=== PATIENT | female | born 1935 | race Two or more races ===

== ENCOUNTER 2018-01-26 11:51 | Emergency (ER) | payer OTHER ==
[~2018-01-26] VITALS: Ht 157.5 cm; Wt 77.1 kg
[2018-01-26 11:58] VITALS: BP 166/61
[2018-01-26 12:51] LABS: APPEARANCE,URINE CLOUDY; BILIRUBIN, URINE NEGATIVE (NEGATIVE); GLUCOSE, URINE (UA) NEGATIVE (NEGATIVE); KETONES,URINE NEGATIVE (NEGATIVE); LEUKOCYTE ESTERASE ,URINE 1+ (NEGATIVE); NITRITE,URINE NEGATIVE (NEGATIVE); PH,URINE 6 (4.5-8.0); PROTEIN,URINE 2+ (NEGATIVE); UROBILINOGEN,URINE NORMAL MG/DL (0.0-1.0)
[2018-01-26 12:52] LABS: BASOPHILS % (AUTO) 1.8 % (0.0-2.0); HEMOGLOBIN 11.1 G/DL (12.0-16.0); LYMPHOCYTES % (AUTO) 20.3 % (20.0-45.0); MEAN CORPUSCULAR VOLUME 92 FL (80-99); MONOCYTES % (AUTO) 9.3 % (1.0-10.0); NEUTROPHILS % (AUTO) 61.6 % (45.0-75.0); PLATELET COUNT 224 K/UL (150-450); RED BLOOD COUNT 3.69 M/UL (4.20-5.40); WHITE BLOOD COUNT 5.6 K/UL (4.8-10.8)
[2018-01-26 12:59] LABS: COLOR,URINE YELLOW
[2018-01-26 13:05] LABS: ANION GAP 7 mmol/L (5-15); BLOOD UREA NITROGEN 25 mg/dL (7-18); CALCIUM 9.5 MG/DL (8.5-10.1); CARBON DIOXIDE 29 MMOL/L (21-32); CHLORIDE 106 MMOL/L (98-107); CREATININE 0.9 MG/DL (0.55-1.30); POTASSIUM 4.2 MMOL/L (3.5-5.1); SODIUM 142 MMOL/L (136-145)
[2018-01-26 13:18] LABS: ALANINE AMINOTRANSFERASE 25 U/L (12-78); ALBUMIN 3.8 G/DL (3.4-5.0); ALBUMIN/GLOBULIN RATIO 1.1 (1.0-2.7); ALKALINE PHOSPHATASE 53 U/L (46-116); ASPARTATE AMINO TRANSFERASE 27 U/L (15-37); BILIRUBIN,TOTAL 0.6 MG/DL (0.2-1.0); CKMB 1.7 NG/ML (0.0-3.6); CREATINE KINASE 134 U/L (26-308)
[2018-01-26 13:39] VITALS: BP 119/75
--- NOTE | 2018-01-26 15:18 | Emergency Room Report ---
History of Present Illness General Chief Complaint: Chest Pain Source: Patient Present Illness HPI This patient states that she has had pain in her left shoulder and left upper back for a very long time. She denies recent illness. She denies cough or congestion. She denies fever or chills. She denies nausea or vomiting. She denies abdominal pain. She has no other complaints. Allergies: Coded Allergies: No Known Allergies (Unverified , 01/26/18) Patient History Past Medical History: see triage record Social History: Denies: smoking, alcohol use, drug use Reviewed Nursing Documentation: PMH: Agreed; PSxH: Agreed Nursing Documentation-PMH Past Medical History: No History, Except For Review of Systems All Other Systems: negative except mentioned in HPI Physical Exam Vital Signs Date Time Temp Pulse Resp B/P (MAP) Pulse Ox O2 Delivery O2 Flow Rate FiO2 01/26/18 11:58 98.3 55 18 166/61 98 Room Air 98.2 Sp02 EP Interpretation: reviewed, normal General Appearance: no apparent distress, alert, GCS 15, non-toxic Head: normocephalic, atraumatic Eyes: bilateral eye normal inspection, bilateral eye PERRL ENT: hearing grossly normal, normal pharynx, no angioedema, normal voice Neck: full range of motion, supple/symm/no masses, tender - TTP along the L. trapezius m. and L. shoulder. Reproduces the pain. Respiratory: chest non-tender, lungs clear, normal breath sounds, no respiratory distress, no retraction, no accessory muscle use, speaking full sentences Cardiovascular #1: regular rate, rhythm, no edema Gastrointestinal: normal bowel sounds, non tender, soft, non-distended, no guarding, no rebound Rectal: deferred Musculoskeletal: back normal, normal range of motion, non-tender Neurologic: alert, oriented x3, responsive, motor strength/tone normal, sensory intact, speech normal Psychiatric: judgement/insight normal, memory normal, mood/affect normal, no suicidal/homicidal ideation Skin: normal color, no rash, warm/dry, well hydrated Medical Decision Making Diagnostic Impression: Primary Impression: Shoulder pain Additional Impressions: Trapezius muscle spasm Cervical radiculopathy Hematuria ER Course This patient has a clinical presentation consistent with muscle pain/spasm. There are no red flags on physical exam or history that would make me concerned for underlying fracture. The patient has pain with range of motion and has tenderness to palpation along the muscle. There is no evidence of compartment syndrome. There is no neurologic deficit. Given the patient's age, I did obtain a cardiac workup as a precaution. I considered PE, PTX, acute coronary syndrome, aortic dissection, pneumonia which is unlikely given hx, CE, CXR. Low risk PERC and Wells. Negative work-up to include Cardiac enzymes, CXR, EKG. Given history and PE I do not feel that this patient needs further evaluation at this time. The patient was instructed to follow-up closely with their PCP and close return precautions were given. The patient was instructed on supportive home measures. No emergency medical condition was identified. The patient was given return precautions and followup instructions. Laboratory Tests Test 01/26/18 12:19 White Blood Count 5.6 K/UL (4.8-10.8) Red Blood Count 3.69 M/UL (4.20-5.40) L Hemoglobin 11.1 G/DL (12.0-16.0) L Hematocrit 34.0 % (37.0-47.0) L Mean Corpuscular Volume 92 FL (80-99) Mean Corpuscular Hemoglobin 30.0 PG (27.0-31.0) Mean Corpuscular Hemoglobin Concent 32.6 G/DL (32.0-36.0) Red Cell Distribution Width 12.0 % (11.6-14.8) Platelet Count 224 K/UL (150-450) Mean Platelet Volume 7.7 FL (6.5-10.1) Neutrophils (%) (Auto) 61.6 % (45.0-75.0) Lymphocytes (%) (Auto) 20.3 % (20.0-45.0) Monocytes (%) (Auto) 9.3 % (1.0-10.0) Eosinophils (%) (Auto) 7.0 % (0.0-3.0) H Basophils (%) (Auto) 1.8 % (0.0-2.0) Urine Color Yellow Urine Appearance Cloudy Urine pH 6 (4.5-8.0) Urine Specific [place] 1.015 (1.005-1.035) Urine Protein 2+ (NEGATIVE) H Urine Glucose (UA) Negative (NEGATIVE) Urine Ketones Negative (NEGATIVE) Urine Blood 5+ (NEGATIVE) H Urine Nitrite Negative (NEGATIVE) Urine Bilirubin Negative (NEGATIVE) Urine Urobilinogen Normal MG/DL (0.0-1.0) Urine Leukocyte Esterase 1+ (NEGATIVE) H Urine RBC Tntc /HPF (0 - 2) H Urine WBC 2-4 /HPF (0 - 2) Urine Squamous Epithelial Cells Occasional /LPF Urine Bacteria Few /HPF (NONE) Sodium Level 142 MMOL/L (136-145) Potassium Level 4.2 MMOL/L (3.5-5.1) Chloride Level 106 MMOL/L (98-107) Carbon Dioxide Level 29 MMOL/L (21-32) Anion Gap 7 mmol/L (5-15) Blood Urea Nitrogen 25 mg/dL (7-18) H Creatinine 0.9 MG/DL (0.55-1.30) Estimate Glomerular Filtration Rate mL/min (>60) Glucose Level 105 MG/DL (74-106) Calcium Level 9.5 MG/DL (8.5-10.1) Total Bilirubin 0.6 MG/DL (0.2-1.0) Aspartate Amino Transferase (AST) 27 U/L (15-37) Alanine Aminotransferase (ALT) 25 U/L (12-78) Alkaline Phosphatase 53 U/L (46-116) Total Creatine Kinase 134 U/L (26-308) Creatine Kinase MB 1.7 NG/ML (0.0-3.6) Creatine Kinase MB Relative Index 1.2 Troponin I 0.017 ng/mL (0.000-0.056) Total Protein 7.4 G/DL (6.4-8.2) Albumin 3.8 G/DL (3.4-5.0) Globulin 3.6 g/dL Albumin/Globulin Ratio 1.1 (1.0-2.7) EKG Diagnostic Results Rate: bradycardiac - S.bren, LAD, IRBB Rhythm: other - S.bren ST Segments: no acute changes Rhythm Strip Diag. Results EP Interpretation: yes Rate: 50's Rhythm: no PVC's, no ectopy, other - S.bren Chest X-Ray Diagnostic Results Chest X-Ray Diagnostic Results : Chest X-Ray Ordered: Yes # of Views/Limited/Complete: 1 View Indication: Other EP Interpretation: Yes Interpretation: no consolidation, no effusion, no pneumothorax, no acute cardiopulmonary disease Impression: No acute disease Electronically Signed by: Marco Last Vital Signs Date Time Temp Pulse Resp B/P (MAP) Pulse Ox O2 Delivery O2 Flow Rate FiO2 01/26/18 13:39 97.2 54 16 119/75 98 Room Air 97.2 Status: improved Disposition: HOME, SELF-CARE Condition: Improved Scripts Unable to Obtain Active Prescriptions or Reported Meds Referrals: [facility],REFERRING (PCP) Maricruz Franks DO Jan 26, 2018 15:18
[2018-01-26] MEDS ORDERED: ACETAMINOPHEN500 M3 ORAL (15:20)
[2018-01-26 15:36] VITALS: BP 143/75
--- NOTE | 2018-01-26 16:33 | Diagnostic Imaging Report ---
Indication: Chest pain Technique: One view of the chest Comparison: none Findings: Lungs and pleural spaces are clear. The heart is enlarged. The aorta is tortuous and calcified Impression: Cardiomegaly No acute process
--- NOTE | 2018-01-28 19:02 | Cardiology Report ---
APPROVED REPORT EKG Measurement Heart [id number] Sinus bradycardia Left axis deviation Incomplete right bundle branch block Abnormal ECG
== END 2018-01-26 15:39 | disposition home or self-care (01) ==
LOC: EMR 13:15
DX: M54.12 Radiculopathy, cervical region (principal); M25.512 Pain in left shoulder; M62.838 Other muscle spasm; R31.9 Hematuria, unspecified
CPT/HCPCS: 36415; 71045; 80053; 81003; 82550; 82553; 84484; 85025; 93005; 99284

== ENCOUNTER 2019-01-21 11:44 | Inpatient (IN) | payer OTHER ==
[~2019-01-21] VITALS: Ht 162.6 cm; Wt 80.3 kg
[~2019-01-21 11:44] MED LIST: ACETAMINOPHEN500 M3 ORAL
--- NOTE | 2019-01-21 12:00 | NUR ---
ED Nurse Note: Patient walked into ED brought in by her crook operator from correction/assisted living [facility] due to s/p fall today that happened 1 hour prior to arrival, patient reports she was reaching for her medication and fell because the chair sled off, patient reports she felt "weak" and fell. another crook operator found her and her eyes were open, but patient was not responding properly. caretake reports that she does not appear normal to her. patient is awake alert, appears to be confused, ambulatory, breathing unlabored and even.
--- NOTE | 2019-01-21 12:20 | NUR ---
ED Nurse Note: patient went to CT
[2019-01-21 12:21] VITALS: BP 128/39
[2019-01-21 12:30] LABS: BASOPHILS % (AUTO) 1.4 % (0.0-2.0); EOSINOPHILS % (AUTO) 4.4 % (0.0-3.0); HEMOGLOBIN 12.5 G/DL (12.0-16.0); LYMPHOCYTES % (AUTO) 25.5 % (20.0-45.0); MEAN CORPUSCULAR VOLUME 91 FL (80-99); MONOCYTES % (AUTO) 10.5 % (1.0-10.0); NEUTROPHILS % (AUTO) 58.2 % (45.0-75.0); PLATELET COUNT 232 K/UL (150-450); RED BLOOD COUNT 4.29 M/UL (4.20-5.40); RED CELL DISTRIBUTION WIDTH 13.8 % (11.6-14.8); WHITE BLOOD COUNT 4.8 K/UL (4.8-10.8)
--- NOTE | 2019-01-21 12:42 | Emergency Room Report ---
History of Present Illness General Chief Complaint: Multiple Trauma/Fall Source: Patient Present Illness HPI 83-year-old female history of dementia presents with possible mechanical fall, patient was reaching for medications, fell backward when the chair slid out from under her, she had positive LOC patient denies any chest pain or shortness of breath patient presents for evaluation. Symptoms were mild she endorses a mild headache in the back of her head no aggravating or alleviating factors. Allergies: Coded Allergies: No Known Allergies (Unverified , 01/26/18) Patient History Past Medical History: see triage record Last Menstrual Period: n/a Reviewed Nursing Documentation: PMH: Agreed; PSxH: Agreed Nursing Documentation-PMH Past Medical History: No History, Except For Hx Cardiac Problems: Yes - high cholesterol Hx Asthma: Yes Review of Systems All Other Systems: negative except mentioned in HPI Physical Exam Vital Signs Date Time Temp Pulse Resp B/P (MAP) Pulse Ox O2 Delivery O2 Flow Rate FiO2 01/21/19 11:52 98.4 70 18 123/46 (71) 95 Room Air Sp02 EP Interpretation: reviewed, normal General Appearance: well appearing, no apparent distress, alert Head: normocephalic, atraumatic Eyes: bilateral eye PERRL, bilateral eye EOMI ENT: uvula midline, moist mucus membranes Neck: supple, thyroid normal, no bony tend, supple/symm/no masses Respiratory: lungs clear, no respiratory distress, no retraction, no accessory muscle use Cardiovascular #1: normal peripheral pulses, regular rate, rhythm, no edema, no gallop, no murmur Gastrointestinal: non tender, soft, no guarding, no rebound Musculoskeletal: normal inspection Neurologic: alert, oriented x3 Psychiatric: mood/affect normal Skin: no rash, warm/dry Medical Decision Making Diagnostic Impression: Primary Impression: Fall Qualified Codes: W19.XXXA - Unspecified fall, initial encounter Additional Impressions: Cardiac syncope Closed head injury Qualified Codes: S09.90XA - Unspecified injury of head, initial encounter ER Course 83-year-old female history of dementia presents with syncopal episode unsure if mechanical versus syncope given patient is a poor historian She did have a positive LOC, CT brain negative, EKG shows LAFB, and RBBB, concern for possible full block that may be intermittent, will admit patient for observational care and possible pacemaker versus cardiology evaluation Patient admitted to Dr. Larry Bellamy 1:45pm Laboratory Tests Test 01/21/19 12:19 White Blood Count 4.8 K/UL (4.8-10.8) Red Blood Count 4.29 M/UL (4.20-5.40) Hemoglobin 12.5 G/DL (12.0-16.0) Hematocrit 39.0 % (37.0-47.0) Mean Corpuscular Volume 91 FL (80-99) Mean Corpuscular Hemoglobin 29.1 PG (27.0-31.0) Mean Corpuscular Hemoglobin Concent 32.0 G/DL (32.0-36.0) Red Cell Distribution Width 13.8 % (11.6-14.8) Platelet Count 232 K/UL (150-450) Mean Platelet Volume 7.0 FL (6.5-10.1) Neutrophils (%) (Auto) 58.2 % (45.0-75.0) Lymphocytes (%) (Auto) 25.5 % (20.0-45.0) Monocytes (%) (Auto) 10.5 % (1.0-10.0) H Eosinophils (%) (Auto) 4.4 % (0.0-3.0) H Basophils (%) (Auto) 1.4 % (0.0-2.0) Sodium Level 142 MMOL/L (136-145) Potassium Level 4.5 MMOL/L (3.5-5.1) Chloride Level 107 MMOL/L (98-107) Carbon Dioxide Level 28 MMOL/L (21-32) Anion Gap 7 mmol/L (5-15) Blood Urea Nitrogen 38 mg/dL (7-18) H Creatinine 1.1 MG/DL (0.55-1.30) Estimate Glomerular Filtration Rate mL/min (>60) Glucose Level 113 MG/DL (74-106) H Calcium Level 9.4 MG/DL (8.5-10.1) Total Bilirubin 0.5 MG/DL (0.2-1.0) Aspartate Amino Transferase (AST) 24 U/L (15-37) Alanine Aminotransferase (ALT) 23 U/L (12-78) Alkaline Phosphatase 54 U/L (46-116) Total Creatine Kinase 99 U/L (26-308) Creatine Kinase MB 1.5 NG/ML (0.0-3.6) Creatine Kinase MB Relative Index 1.5 Troponin I 0.000 ng/mL (0.000-0.056) Pro-B-Type Natriuretic Peptide 367 pg/mL (0-125) H Total Protein 7.3 G/DL (6.4-8.2) Albumin 3.6 G/DL (3.4-5.0) Globulin 3.7 g/dL Albumin/Globulin Ratio 1.0 (1.0-2.7) Lipase 279 U/L (73-393) EKG Diagnostic Results EKG Time: 12:05 EP Interpretation: Sinus bradycardia, RBBB, LAFB, rate 59, QTc 401, no acute ST elevations Rhythm Strip Diag. Results Rhythm Strip Time: 13:45 EP Interpretation: yes Rate: 56 Rhythm: no PVC's, no ectopy, other - sinus bradycardia Chest X-Ray Diagnostic Results Chest X-Ray Diagnostic Results : Chest X-Ray Ordered: Yes # of Views/Limited/Complete: 1 View Indication: Other - syncope EP Interpretation: Yes Interpretation: no consolidation, no effusion, no pneumothorax, no acute cardiopulmonary disease Impression: No acute disease Electronically Signed by: He Chan MD CT/MRI/US Diagnostic Results CT/MRI/US Diagnostic Results : Impression CT brain no acute processes Last Vital Signs Date Time Temp Pulse Resp B/P (MAP) Pulse Ox O2 Delivery O2 Flow Rate FiO2 01/21/19 12:22 70 18 Room Air 01/21/19 12:21 98.4 128/39 99 Disposition: ADMITTED INPATIENT Condition: Stable Referrals: NON PHYSICIAN (PCP) He Chan MD Jan 21, 2019 12:42
--- NOTE | 2019-01-21 12:44 | NUR ---
ED Nurse Note: patient came back from CT
[2019-01-21 12:45] LABS: ANION GAP 7 mmol/L (5-15); BLOOD UREA NITROGEN 38 mg/dL (7-18); CALCIUM 9.4 MG/DL (8.5-10.1); CARBON DIOXIDE 28 MMOL/L (21-32); CHLORIDE 107 MMOL/L (98-107); CREATININE 1.1 MG/DL (0.55-1.30); POTASSIUM 4.5 MMOL/L (3.5-5.1); SODIUM 142 MMOL/L (136-145)
[2019-01-21 12:59] LABS: ALANINE AMINOTRANSFERASE 23 U/L (12-78); ALBUMIN 3.6 G/DL (3.4-5.0); ALKALINE PHOSPHATASE 54 U/L (46-116); ASPARTATE AMINO TRANSFERASE 24 U/L (15-37); BILIRUBIN,TOTAL 0.5 MG/DL (0.2-1.0); CKMB 1.5 NG/ML (0.0-3.6); CREATINE KINASE 99 U/L (26-308)
--- NOTE | 2019-01-21 13:00 | Diagnostic Imaging Report ---
Indications: Head trauma, pain, status post fall Technique: Spiral acquisitions obtained through the brain. Angled axial and coronal 5 x 5 mm slices were reconstructed. Total dose length product 1337.38 mGycm. CTDI vol(s) 70.38 mGy. Dose reduction achieved using automated exposure control Comparison: None. Findings: There is age-related enlargement of the convexity extra-axial CSF spaces. Ventricles are normal in size. No acute intracranial hemorrhage or edema, mass effect, nor midline shift. Normal doss-white differentiation. Visualized orbits and sinuses are unremarkable. The mastoids are underpneumatized, otherwise unremarkable. The calvarium is intact. Impression: Negative for acute intracranial bleed or mass effect Age-related cerebral cortical volume loss The CT scanner at [facility] is accredited by the [employer] and the scans are performed using protocols designed to limit radiation exposure to as low as reasonably achievable to attain images of sufficient resolution adequate for diagnostic evaluation.
--- NOTE | 2019-01-21 13:09 | NUR ---
ED Nurse Note: Report given to DONNA Juarez at ext [phone]. Pt to be transfered to Tele per protocol. RN instructed to bring pt up when room is ready.
--- NOTE | 2019-01-21 13:33 | NUR ---
ED Nurse Note: UA SENT TO LAB
--- NOTE | 2019-01-21 13:40 | NUR ---
ED Nurse Note: patient is being transferred up to 2E on ACLS protocol with all of her belongings.
--- NOTE | 2019-01-21 13:50 | NUR ---
NURSE NOTES: Received report from Sirisha RN from ED. The patient transferred via [place] with ED RN and packaging technician. No c/o pain at this time. No acute distress noted. surveillance system monitor applied. Bed in its lowest position and locked. Side rails x2 up and brake engaged. IV in RAC 20G SL patent and asymptomatic. Belonging list reviewed and signed by the patient. Her clothes taken by her client care coordinator. Dr. Willams paged for getting admission diagnosis. Will continue to plan of care.
[2019-01-21 14:00] VITALS: BP 147/85
[2019-01-21 14:00] LABS: APPEARANCE,URINE CLEAR; BILIRUBIN, URINE NEGATIVE (NEGATIVE); COLOR,URINE PALE YELLOW; GLUCOSE, URINE (UA) NEGATIVE (NEGATIVE); KETONES,URINE NEGATIVE (NEGATIVE); LEUKOCYTE ESTERASE ,URINE 2+ (NEGATIVE); NITRITE,URINE NEGATIVE (NEGATIVE); PH,URINE 7 (4.5-8.0); PROTEIN,URINE NEGATIVE (NEGATIVE); UROBILINOGEN,URINE NORMAL MG/DL (0.0-1.0)
[2019-01-21] MEDS ORDERED: Miralax 17gm pkt ORAL PRN (14:00)
[2019-01-21] MEDS ORDERED: Zolpidem 5mg tab ORAL PRN (14:00)
[2019-01-21] MEDS ORDERED: LORazepam Inj 2mg/ml 1ml IV PRN (14:00)
--- NOTE | 2019-01-21 14:18 | Diagnostic Imaging Report ---
Indication: Shortness of breath Technique: One view of the chest Comparison: 01/26/2018 Findings: The heart is enlarged. There is mild bilateral diffuse interstitial congestion. No focal airspace consolidation. No effusions. Impression: Cardiomegaly. Mild interstitial congestion
[2019-01-21 16:00] VITALS: BP 141/79
[2019-01-21] MEDS ORDERED: MECLIZINE HCL12.5 MG ORAL (16:32)
[2019-01-21] MEDS ORDERED: IBUPROFEN200 MG ORAL (16:32)
[2019-01-21] MEDS ORDERED: MONTELUKAST SOD10 MG ORAL (16:32)
--- NOTE | 2019-01-21 19:18 | NUR ---
HAND-OFF: Report given to Ray THOMPSON. Pt remains stable.
--- NOTE | 2019-01-21 19:20 | NUR ---
NURSE NOTES: Pt received from Min, RN alert and oriented x4 with no acute s/s of distress noted with caretakers at bedside. IV site asymptomatic and patent on R ac 20g, saline lock. Bed alarm on. Bed in lowest position, call light and belongings within reach. groundwater monitoring technician on - Sinus Rhythm 75.
[2019-01-21 20:00] VITALS: BP 146/55
[2019-01-21] MEDS: Montelukast 10mg tablet ORAL SCH (21:18)
[2019-01-22] VITALS: BP 149/51
[2019-01-22] MEDS: Morphine Sulfate 2mg/ml Inj(IV/IM USE ONLY) IVP PRN ×3 (02:08→21:19)
[2019-01-22 04:00] VITALS: BP 141/58
--- NOTE | 2019-01-22 07:23 | NUR ---
HAND-OFF: Report given to DONNA Poole. Plan of care endorsed. No acute s/s of acute distress noted.
--- NOTE | 2019-01-22 07:31 | NUR ---
NURSE NOTES: Received report from DONNA Bell. Patient in bed resting, no active s/s cardiac, respiratory distress noticed at this time. Patient AOx4, forgetful, SB with HR 49, on room air. IV on right AC 20G, asymptomatic, patent, intact. Bed in lowest position, side rails upx3, call light within reach, bed alarm on. Will continue to monitor.
[2019-01-22 08:00] VITALS: BP 138/53
[2019-01-22 08:00] LABS: BASOPHILS % (AUTO) 1.3 % (0.0-2.0); EOSINOPHILS % (AUTO) 5.5 % (0.0-3.0); HEMATOCRIT 36.6 % (37.0-47.0); HEMOGLOBIN 11.8 G/DL (12.0-16.0); LYMPHOCYTES % (AUTO) 33.9 % (20.0-45.0); MEAN CORPUSCULAR VOLUME 91 FL (80-99); MONOCYTES % (AUTO) 10.4 % (1.0-10.0); PLATELET COUNT 192 K/UL (150-450); RED BLOOD COUNT 4.01 M/UL (4.20-5.40); RED CELL DISTRIBUTION WIDTH 13.6 % (11.6-14.8); WHITE BLOOD COUNT 4.5 K/UL (4.8-10.8)
[2019-01-22 09:41] LABS: ALANINE AMINOTRANSFERASE 21 U/L (12-78); ALBUMIN 3.2 G/DL (3.4-5.0); ALBUMIN/GLOBULIN RATIO 0.9 (1.0-2.7); ALKALINE PHOSPHATASE 46 U/L (46-116); ANION GAP 10 mmol/L (5-15); ASPARTATE AMINO TRANSFERASE 22 U/L (15-37); BILIRUBIN,TOTAL 0.5 MG/DL (0.2-1.0); BLOOD UREA NITROGEN 26 mg/dL (7-18); CALCIUM 9.2 MG/DL (8.5-10.1); CARBON DIOXIDE 26 MMOL/L (21-32); CHLORIDE 109 MMOL/L (98-107); CHOLESTEROL 208 MG/DL (< 200); HDL CHOLESTEROL 46 MG/DL (40-60); POTASSIUM 4.5 MMOL/L (3.5-5.1); SODIUM 145 MMOL/L (136-145); TRIGLYCERIDES 103 MG/DL (30-150)
--- NOTE | 2019-01-22 09:52 | NUR ---
NURSE NOTES: Dr. Bellamy made aware of lowest HR last night 42, HR at this time is 67. No order given at this time. Will continue to monitor. Addendum: 01/22/19 at 0957 by ARCHANA ROSALES RN per Dr. Bellamy, Dr. Lewis on the case. Order noted, entered, carried out.
--- NOTE | 2019-01-22 10:23 | Consultation ---
History of Present Illness General Date patient seen: Jan 22, 2019 Time patient seen: 12:09 Chief Complaint: Multiple Trauma/Fall Present Illness HPI HISTORY: This is an 83-year-old female, who lives at home, presents to [place] ER with history of syncopal episode. No nausea, vomiting, or diarrhea. No chest pain. No shortness of breath. 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 Allergies: Coded Allergies: No Known Allergies (Unverified , 01/26/18) Medication History Scheduled Montelukast Sodium* (Montelukast Sodium*), 10 MG ORAL HS, (Reported) Scheduled PRN Ibuprofen (Ibuprofen*), 650 MG ORAL Q8HR PRN for For Pain, (Reported) Meclizine Hcl* (Meclizine*), 12.5 MG ORAL DAILY PRN for for dizziness, (Reported ) Discontinued Medications Acetaminophen* (Acetaminophen Extra Strength*), 500 MG ORAL Q8H PRN for Fever/ Headache/Mild Pain Discontinued Reason: Pt stopped taking med Patient History Healthcare decision maker Resuscitation status Full Code Advanced Directive on File No Review of Systems Constitutional: Reports: no symptoms Eye: Reports: no symptoms Respiratory: Reports: no symptoms Cardiovascular: Reports: syncope Gastrointestinal: Reports: no symptoms Genitourinary: Reports: no symptoms Musculoskeletal: Reports: no symptoms Skin: Reports: no symptoms Psychiatric: Reports: no symptoms Neurological: Reports: no symptoms Endocrine: Reports: no symptoms Hematologic/Lymphatic: Reports: no symptoms Physical Exam General Appearance: no apparent distress, alert Lines, tubes and drains: peripheral HEENT: normocephalic, atraumatic Neck: non-tender, normal alignment, supple Respiratory/Chest: chest wall non-tender, lungs clear Cardiovascular/Chest: normal peripheral pulses, normal rate, regular rhythm Abdomen: normal bowel sounds, non tender Extremities: normal range of motion, non-tender, normal inspection, no calf tenderness Skin Exam: normal pigmentation, warm/dry, cyanotic Neurologic: bindery manager II-XII grossly normal, no motor/sensory deficits Last 24 Hour Vital Signs Date Time Temp Pulse Resp B/P (MAP) Pulse Ox O2 Delivery O2 Flow Rate FiO2 01/22/19 09:00 Room Air 01/22/19 08:00 97.2 43 18 138/53 (81) 96 43 01/22/19 08:00 42 01/22/19 04:00 42 01/22/19 04:00 98.3 50 20 141/58 (85) 98 50 01/22/19 00:00 98.3 51 20 149/51 (83) 98 51 01/22/19 00:00 57 01/21/19 21:00 Room Air 01/21/19 20:00 51 01/21/19 20:00 97.9 58 20 146/55 (85) 99 58 01/21/19 16:00 97.9 81 18 141/79 (99) 96 81 01/21/19 16:00 74 01/21/19 14:15 Room Air 01/21/19 14:04 74 01/21/19 14:00 97.8 76 18 147/85 (105) 97 76 01/21/19 13:40 98.4 79 18 128/39 99 Room Air 01/21/19 12:22 70 18 Room Air 01/21/19 12:21 98.4 79 17 128/39 99 Room Air 01/21/19 11:52 98.4 70 18 123/46 (71) 95 Room Air Intake and Output 01/21/19 01/22/19 18:59 06:59 Intake Total 200 ml Balance 200 ml Intake Oral 200 ml # Voids 3 4 Laboratory Tests Test 01/21/19 12:19 01/21/19 13:26 01/22/19 05:45 White Blood Count 4.8 K/UL (4.8-10.8) 4.5 K/UL (4.8-10.8) L Red Blood Count 4.29 M/UL (4.20-5.40) 4.01 M/UL (4.20-5.40) L Hemoglobin 12.5 G/DL (12.0-16.0) 11.8 G/DL (12.0-16.0) L Hematocrit 39.0 % (37.0-47.0) 36.6 % (37.0-47.0) L Mean Corpuscular Volume 91 FL (80-99) 91 FL (80-99) Mean Corpuscular Hemoglobin 29.1 PG (27.0-31.0) 29.4 PG (27.0-31.0) Mean Corpuscular Hemoglobin Concent 32.0 G/DL (32.0-36.0) 32.2 G/DL (32.0-36.0) Red Cell Distribution Width 13.8 % (11.6-14.8) 13.6 % (11.6-14.8) Platelet Count 232 K/UL (150-450) 192 K/UL (150-450) Mean Platelet Volume 7.0 FL (6.5-10.1) 7.0 FL (6.5-10.1) Neutrophils (%) (Auto) 58.2 % (45.0-75.0) 49.0 % (45.0-75.0) Lymphocytes (%) (Auto) 25.5 % (20.0-45.0) 33.9 % (20.0-45.0) Monocytes (%) (Auto) 10.5 % (1.0-10.0) H 10.4 % (1.0-10.0) H Eosinophils (%) (Auto) 4.4 % (0.0-3.0) H 5.5 % (0.0-3.0) H Basophils (%) (Auto) 1.4 % (0.0-2.0) 1.3 % (0.0-2.0) Sodium Level 142 MMOL/L (136-145) 145 MMOL/L (136-145) Potassium Level 4.5 MMOL/L (3.5-5.1) 4.5 MMOL/L (3.5-5.1) Chloride Level 107 MMOL/L (98-107) 109 MMOL/L (98-107) H Carbon Dioxide Level 28 MMOL/L (21-32) 26 MMOL/L (21-32) Anion Gap 7 mmol/L (5-15) 10 mmol/L (5-15) Blood Urea Nitrogen 38 mg/dL (7-18) H 26 mg/dL (7-18) H Creatinine 1.1 MG/DL (0.55-1.30) 1.0 MG/DL (0.55-1.30) Estimat Glomerular Filtration Rate mL/min (>60) mL/min (>60) Glucose Level 113 MG/DL (74-106) H 87 MG/DL (74-106) Calcium Level 9.4 MG/DL (8.5-10.1) 9.2 MG/DL (8.5-10.1) Total Bilirubin 0.5 MG/DL (0.2-1.0) 0.5 MG/DL (0.2-1.0) Aspartate Amino Transf (AST/SGOT) 24 U/L (15-37) 22 U/L (15-37) Alanine Aminotransferase (ALT/SGPT) 23 U/L (12-78) 21 U/L (12-78) Alkaline Phosphatase 54 U/L (46-116) 46 U/L (46-116) Total Creatine Kinase 99 U/L (26-308) Creatine Kinase MB 1.5 NG/ML (0.0-3.6) Creatine Kinase MB Relative Index 1.5 Troponin I 0.000 ng/mL (0.000-0.056) Pro-B-Type Natriuretic Peptide 367 pg/mL (0-125) H Total Protein 7.3 G/DL (6.4-8.2) 6.6 G/DL (6.4-8.2) Albumin 3.6 G/DL (3.4-5.0) 3.2 G/DL (3.4-5.0) L Globulin 3.7 g/dL 3.4 g/dL Albumin/Globulin Ratio 1.0 (1.0-2.7) 0.9 (1.0-2.7) L Lipase 279 U/L (73-393) Urine Color Pale yellow Urine Appearance Clear Urine pH 7 (4.5-8.0) Urine Specific [place] 1.005 (1.005-1.035) Urine Protein Negative (NEGATIVE) Urine Glucose (UA) Negative (NEGATIVE) Urine Ketones Negative (NEGATIVE) Urine Blood Negative (NEGATIVE) Urine Nitrite Negative (NEGATIVE) Urine Bilirubin Negative (NEGATIVE) Urine Urobilinogen Normal MG/DL (0.0-1.0) Urine Leukocyte Esterase 2+ (NEGATIVE) H Urine RBC 0 /HPF (0 - 2) Urine WBC 2-4 /HPF (0 - 2) Urine Squamous Epithelial Cells Occasional /LPF Urine Bacteria None /HPF (NONE) Triglycerides Level 103 MG/DL (30-150) Cholesterol Level 208 MG/DL (< 200) H LDL Cholesterol 137 mg/dL (<100) H HDL Cholesterol 46 MG/DL (40-60) Cholesterol/HDL Ratio 4.5 (3.3-4.4) H Thyroid Stimulating Hormone (TSH) 1.892 uiU/mL (0.358-3.740) Microbiology Date/Time Source Procedure Growth Status 01/21/19 13:13 Rectum Received Height (Feet): 5 Height (Inches): 4.00 Weight (Pounds): 177 Medications Current Medications Medications (Trade) Dose Ordered Sig/Rosalina Route PRN Reason Start Time Stop Time Status Last Admin Dose Admin Acetaminophen (Tylenol) 650 mg Q4H PRN ORAL fever 01/21/19 14:00 02/20/19 13:59 01/22/19 09:46 Dextrose (Dextrose 50%) 25 ml Q30M PRN IV Hypoglycemia 01/21/19 14:00 02/20/19 13:59 Dextrose (Dextrose 50%) 50 ml Q30M PRN IV Hypoglycemia 01/21/19 14:00 02/20/19 13:59 Lorazepam (Ativan 2mg/ml 1ml) 0.5 mg Q4H PRN IV For Anxiety 01/21/19 14:00 01/28/19 13:59 Montelukast Sodium (Singulair) 10 mg QHS ORAL 01/21/19 21:00 02/20/19 20:59 01/21/19 21:18 Morphine Sulfate (Morphine Sulfate) 1 mg Q4H PRN IVP For Pain 01/21/19 14:00 01/28/19 13:59 01/22/19 02:08 Ondansetron HCl (Zofran) 4 mg Q6H PRN IVP Nausea & Vomiting 01/21/19 14:00 02/20/19 13:59 Polyethylene Glycol (Miralax) 17 gm HSPRN PRN ORAL Constipation 01/21/19 14:00 02/20/19 13:59 Zolpidem Tartrate (Ambien) 5 mg HSPRN PRN ORAL Insomnia 01/21/19 14:00 01/28/19 13:59 Assessment/Plan Status: stable, progressing Assessment/Plan: ASSESSMENT: 1. Syncope. 2. UTI. 3. 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 4. Anemia. 5. Shortness of breath. PLAN: Continue to monitor on telemetry d/c with ziopatch Check orthostatics Echocardiogram pending IV fluids No indication for pacemaker at this time. Fritz Lester MD Jan 22, 2019 10:23
--- NOTE | 2019-01-22 10:33 | NUR ---
NURSE NOTES: Dr. Lester at the nursing station made aware of HR last night 42. Per MD, when patient asleep HR 42 is okay. No order given at this time. Will continue to monitor.
--- NOTE | 2019-01-22 11:03 | NUR ---
CASE MANAGEMENT: INITIAL REVIEW 83 YO F PRESENTED TO OUR ED FROM HOME CC: S/P FALL PMHx: HLD. ASTHMA. SI:SYNCOPE. T 98.4 HR 70 RR 18 B/P 123/46 SATS 95% ON RA BUN 38 GLU 113 BNP 367 IS: NS BOLUS X1 PATIENT ADMITTED TO TELE 01/21/2019 @ 7235 DCP: PATIENT TO BE DISCHARGED TO HOME ONCE MEDICALLY CLEARED. PLAN OF CARE: 2D ECHO EF 60% VENOUS DUPLEX PT EVAL Addendum: 01/22/19 at 1812 by Shirley Frausto CM INTERBIJAN BUCK
[2019-01-22 12:00] VITALS: BP 127/59
--- NOTE | 2019-01-22 13:23 | Cardiology Report ---
APPROVED REPORT EKG Measurement Heart [id number] WI 180P49 [id number] Sinus bradycardia Right bundle branch block Left anterior fascicular block Bifascicular block Cannot rule out Inferior infarct (masked by fascicular block?), age undetermined Abnormal ECG
--- NOTE | 2019-01-22 15:45 | NUR ---
PT Note PT rosana completed, treatment initiated. Patient has muscle weakness and decreased balance, making her at a risk for falls. Patient needs PT to increase her muscle strength and postural stability to improve her safety in mobility and gait. Addendum: 01/22/19 at 1546 by GENIE TOSCANO PT Amended: Links added.
[2019-01-22 16:00] VITALS: BP 149/64
--- NOTE | 2019-01-22 19:35 | NUR ---
HAND-OFF: Report given to DONNA Rubio.
--- NOTE | 2019-01-22 19:43 | NUR ---
NURSE NOTES: Received report from DONNA Poole. Patient is awake lying semi-decker's; resting comfortably. No signs of acute distress noted; complains of pain. AOx3-4; able to make needs known. Primarily Malay speaking. Ambulates with some assistance. Checked IV site; patent and flushed. No erythema, bleeding, or infiltration noted. Bed at lowest position, brakes on, siderails up x3. Call light within reach. Will continue to monitor.
[2019-01-22 20:00] VITALS: BP 144/66
[2019-01-22] MEDS: Montelukast 10mg tablet ORAL SCH (21:15)
--- NOTE | 2019-01-22 21:30 | History and Physical Report ---
DATE OF ADMISSION: 01/21/2019 TIME SEEN: On 01/21/2019, at 3 p.m. CONSULTANTS: 1. 2. Melissa Willams M.D. CHIEF COMPLAINT: Syncope and weakness. BRIEF HISTORY: This is an 83-year-old female, who lives at home, presents to [place] [facility] with history of syncopal episode. No nausea, vomiting, or diarrhea. No chest pain. No shortness of breath. The patient came to [place], diagnosed as above, with left fascicular block and right bundle-branch block and admitted to telemetry for further care. Currently, calm, sitting, no complaint. REVIEW OF SYSTEMS: No chest pain. No shortness of breath. No nausea, vomiting, or diarrhea. PAST MEDICAL HISTORY: Includes syncope and fall. PAST SURGICAL HISTORY: Unknown. MEDICATIONS: Include Montelukast, Tylenol, morphine, polyethylene glycol, Zofran, and lorazepam. ALLERGIES: Denies. SOCIAL HISTORY: Positive smoke. Occasional alcohol. No intravenous drug abuse. FAMILY HISTORY: Noncontributory. PHYSICAL EXAMINATION: GENERAL: Calm in bed, oriented x3, in no acute distress. VITAL SIGNS: Temperature is 97 degrees, pulse 54, respirations 18, and blood pressure 127/59. CARDIOVASCULAR: No murmurs. LUNGS: Poor air exchange. ABDOMEN: Bowel sounds positive. Nontender. Nondistended. EXTREMITIES: No cyanosis, clubbing, or edema. NEUROLOGIC: The patient moves all extremities, slightly weak. LABORATORY AND DIAGNOSTIC DATA: Labs at this time show white count 4.5, H and H 11.8/36, otherwise CBC is normal. BMP shows chloride 109, BUN 26, albumin 3.2, and cholesterol 208. Urinalysis show 2+ leukocyte esterase. ASSESSMENT: 1. Syncope. 2. UTI. 3. 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 4. Anemia. 5. Shortness of breath. PLAN: 1. O2 and pulmonary treatment. 2. Cardiology followup. 3. Telemetry evaluation. 4. Antibiotics p.r.n. 5. PT and dietary evaluation. 6. CBC and BMP in the morning. Larry Bellamy D.O. DR: FÉLIX JOB#: [id number] CC:
[2019-01-23] VITALS: BP 156/80
--- NOTE | 2019-01-23 03:32 | NUR ---
NURSE NOTES: Patient is asleep lying semi-decker's; resting comfortably. No signs of acute distress or pain noted at this time.
[2019-01-23 04:00] VITALS: BP 165/81
--- NOTE | 2019-01-23 07:13 | NUR ---
HAND-OFF: Report given to DONNA Poole. Patient is asleep lying semi-decker's; resting comfortably. In stable condition.
--- NOTE | 2019-01-23 07:29 | NUR ---
NURSE NOTES: Received report from DONNA Rubio. Patient in bed resting, no active s/s cardiac, respiratory distress noticed at this time. Patient on room air, SR with HR 62, AOx4, forgetful. IV on right AC 20G, asymptomatic, patent, intact. Bed in lowest position, side rails upx2, call light within reach. Will continue to monitor.
[2019-01-23 07:46] LABS: BASOPHILS % (AUTO) 1.7 % (0.0-2.0); EOSINOPHILS % (AUTO) 5.8 % (0.0-3.0); HEMATOCRIT 38.5 % (37.0-47.0); HEMOGLOBIN 12.3 G/DL (12.0-16.0); LYMPHOCYTES % (AUTO) 29.2 % (20.0-45.0); MEAN CORPUSCULAR VOLUME 91 FL (80-99); MONOCYTES % (AUTO) 10.6 % (1.0-10.0); NEUTROPHILS % (AUTO) 52.6 % (45.0-75.0); PLATELET COUNT 192 K/UL (150-450); RED BLOOD COUNT 4.26 M/UL (4.20-5.40); RED CELL DISTRIBUTION WIDTH 13.7 % (11.6-14.8); WHITE BLOOD COUNT 4.7 K/UL (4.8-10.8)
[2019-01-23 07:52] LABS: ANION GAP 7 mmol/L (5-15); BLOOD UREA NITROGEN 23 mg/dL (7-18); CALCIUM 9.5 MG/DL (8.5-10.1); CARBON DIOXIDE 28 MMOL/L (21-32); CHLORIDE 108 MMOL/L (98-107); POTASSIUM 4.3 MMOL/L (3.5-5.1); SODIUM 143 MMOL/L (136-145)
[2019-01-23 08:00] VITALS: BP 166/63
--- NOTE | 2019-01-23 08:01 | NUR ---
NURSE NOTES: Dr. Lester made aware of elevation in BP 166/63 , HR 50-60s, no BP med ordered, patient does not take BP med at home. Per Dr. Lester Norvasc 5 mg PO once. Order noted, entered, carried out.
[2019-01-23] MEDS: cefTRIAXone 1 GM in D5W 55 ML IVPB SCH (09:04)
--- NOTE | 2019-01-23 09:56 | General Progress Note ---
Assessment/Plan Problem List: (1) Avulsion of toenail of left foot ICD Codes: S91.209A - Unspecified open wound of unspecified toe(s) with damage to nail, initial encounter SNOMED: 326150709 (2) Anemia ICD Codes: D64.9 - Anemia, unspecified SNOMED: 899973191 (3) Malnutrition ICD Codes: E46 - Unspecified protein-calorie malnutrition SNOMED: 64086872 (4) Fall ICD Codes: W19.XXXA - Unspecified fall, initial encounter SNOMED: 8250916, 142442578 Qualifiers: Qualified Codes: W19.XXXA - Unspecified fall, initial encounter (5) Cardiac syncope ICD Codes: R55 - Syncope and collapse SNOMED: 901955117, 06475493 Status: stable, progressing Assessment/Plan: pt diet cardiac f/u pod eval cbc bmp am Subjective Constitutional: Reports: weakness Allergies: Coded Allergies: No Known Allergies (Unverified , 01/26/18) All Systems: reviewed and negative except above Subjective calm in bed Objective Last 24 Hour Vital Signs Date Time Temp Pulse Resp B/P (MAP) Pulse Ox O2 Delivery O2 Flow Rate FiO2 01/23/19 09:04 65 166/63 01/23/19 08:00 97.3 65 18 166/63 (97) 96 01/23/19 04:00 62 01/23/19 04:00 96.6 65 20 165/81 (109) 96 01/23/19 00:00 97.9 63 18 156/80 (105) 98 01/23/19 00:00 53 01/22/19 21:00 Room Air 01/22/19 20:00 74 01/22/19 20:00 97.9 52 19 144/66 (92) 98 01/22/19 16:00 45 01/22/19 16:00 98.2 60 18 149/64 (92) 97 60 01/22/19 12:00 43 01/22/19 12:00 97.0 54 18 127/59 (81) 97 54 Intake and Output 01/22/19 01/23/19 19:00 07:00 Intake Total 640 ml 240 ml Balance 640 ml 240 ml Intake Oral 640 ml 240 ml # Voids 2 2 Laboratory Tests 01/23/19 05:40: White Blood Count 4.7L, Red Blood Count 4.26, Hemoglobin 12.3, Hematocrit 38.5, Mean Corpuscular Volume 91, Mean Corpuscular Hemoglobin 29.0, Mean Corpuscular Hemoglobin Concent 32.1, Red Cell Distribution Width 13.7, Platelet Count 192, Mean Platelet Volume 6.9, Neutrophils (%) (Auto) 52.6, Lymphocytes (%) (Auto) 29.2, Monocytes (%) (Auto) 10.6H, Eosinophils (%) (Auto) 5.8H, Basophils (%) ( Auto) 1.7, Sodium Level 143, Potassium Level 4.3, Chloride Level 108H, Carbon Dioxide Level 28, Anion Gap 7, Blood Urea Nitrogen 23H, Creatinine 1.0, Estimat Glomerular Filtration Rate , Glucose Level 87, Calcium Level 9.5 Height (Feet): 5 Height (Inches): 4.00 Weight (Pounds): 177 General Appearance: lethargic EENT: normal ENT inspection Neck: normal alignment Cardiovascular: normal peripheral pulses, normal rate, regular rhythm Respiratory/Chest: chest wall non-tender, lungs clear, normal breath sounds Abdomen: normal bowel sounds, non tender, soft Extremities: normal inspection Edema: no edema noted Arm (L), no edema noted Arm (R), no edema noted Leg (L), no edema noted Leg (R), no edema noted Pedal (L), no edema noted Pedal (R), no edema noted Generalized Neurologic: responsive, motor weakness Skin: normal pigmentation, warm/dry Objective left big toe nail avulsed Larry Bellamy DO Jan 23, 2019 09:56
[2019-01-23] MEDS: Morphine Sulfate 2mg/ml Inj(IV/IM USE ONLY) IVP PRN ×2 (11:22→20:57)
[2019-01-23 12:00] VITALS: BP 143/68
--- NOTE | 2019-01-23 12:12 | Cardiology Progress Note ---
Assessment/Plan Status: stable Assessment/Plan ASSESSMENT: 1. Syncope. 2. UTI. 3. 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 4. Anemia. 5. Shortness of breath. PLAN: Continue to monitor on telemetry d/c with ziopatch Check orthostatics Echocardiogram pending IV fluids No indication for pacemaker at this time. Subjective Cardiovascular: Reports: no symptoms Respiratory: Reports: no symptoms Gastrointestinal/Abdominal: Reports: no symptoms Genitourinary: Reports: no symptoms Subjective No acute events, no arrhythmias no falls no fevers no CP/SOB Objective Last 24 Hour Vital Signs Date Time Temp Pulse Resp B/P (MAP) Pulse Ox O2 Delivery O2 Flow Rate FiO2 01/23/19 09:04 65 166/63 01/23/19 09:00 Room Air 01/23/19 08:00 68 01/23/19 08:00 97.3 65 18 166/63 (97) 96 01/23/19 04:00 62 01/23/19 04:00 96.6 65 20 165/81 (109) 96 01/23/19 00:00 97.9 63 18 156/80 (105) 98 01/23/19 00:00 53 01/22/19 21:00 Room Air 01/22/19 20:00 74 01/22/19 20:00 97.9 52 19 144/66 (92) 98 01/22/19 16:00 45 01/22/19 16:00 98.2 60 18 149/64 (92) 97 60 General Appearance: no apparent distress, alert EENT: PERRL/EOMI, normal ENT inspection, TMs normal, pharynx normal Neck: non-tender, normal alignment, supple, normal inspection, no JVD Rhythm: NSR Cardiovascular: normal peripheral pulses, normal rate Respiratory/Chest: chest wall non-tender, lungs clear, normal breath sounds, no respiratory distress, no accessory muscle use Abdomen: normal bowel sounds, non tender, soft, no organomegaly, no mass Extremities: normal range of motion, non-tender, normal inspection, no calf tenderness, no swelling Intake and Output 01/22/19 01/23/19 18:59 06:59 Intake Total 640 ml 240 ml Balance 640 ml 240 ml Intake Oral 640 ml 240 ml # Voids 2 2 Laboratory Tests Test 01/23/19 05:40 White Blood Count 4.7 K/UL (4.8-10.8) L Red Blood Count 4.26 M/UL (4.20-5.40) Hemoglobin 12.3 G/DL (12.0-16.0) Hematocrit 38.5 % (37.0-47.0) Mean Corpuscular Volume 91 FL (80-99) Mean Corpuscular Hemoglobin 29.0 PG (27.0-31.0) Mean Corpuscular Hemoglobin Concent 32.1 G/DL (32.0-36.0) Red Cell Distribution Width 13.7 % (11.6-14.8) Platelet Count 192 K/UL (150-450) Mean Platelet Volume 6.9 FL (6.5-10.1) Neutrophils (%) (Auto) 52.6 % (45.0-75.0) Lymphocytes (%) (Auto) 29.2 % (20.0-45.0) Monocytes (%) (Auto) 10.6 % (1.0-10.0) H Eosinophils (%) (Auto) 5.8 % (0.0-3.0) H Basophils (%) (Auto) 1.7 % (0.0-2.0) Sodium Level 143 MMOL/L (136-145) Potassium Level 4.3 MMOL/L (3.5-5.1) Chloride Level 108 MMOL/L (98-107) H Carbon Dioxide Level 28 MMOL/L (21-32) Anion Gap 7 mmol/L (5-15) Blood Urea Nitrogen 23 mg/dL (7-18) H Creatinine 1.0 MG/DL (0.55-1.30) Estimat Glomerular Filtration Rate mL/min (>60) Glucose Level 87 MG/DL (74-106) Calcium Level 9.5 MG/DL (8.5-10.1) Microbiology Date/Time Source Procedure Growth Status 01/21/19 13:13 Nasal Nares MRSA Culture - Final NO METHICILLIN RESISTANT STAPH AUREUS... Complete 01/21/19 13:13 Rectum - Final NO CARBAPENEM-RESISTANT ENTEROBACTERI... Complete 01/21/19 13:13 Rectum VRE Culture - Final NO VANCOMYCIN RESISTANT ENTEROCOCCUS ... Complete Fritz Lester MD Jan 23, 2019 12:12
--- NOTE | 2019-01-23 13:34 | Diagnostic Imaging Report ---
US VENOUS BILATERAL LOWER EXTREMITIES: Positive for left-sided DVT with nonocclusive thrombus in the left popliteal vein. No evidence of DVT in the right lower extremity. <MYCVCSECTION> Critical Value Communications 01 23 19 14:35 Call Doctor Regarding Acute DVT, called Zulema THOMPSON on 01 23 14: 34 (-07:00)
--- NOTE | 2019-01-23 13:59 | NUR ---
NURSE NOTES: Dr. Bellamy made aware of acute DVT on left popliteal vein. No order given at this time. Will continue to monitor.
--- NOTE | 2019-01-23 14:29 | NUR ---
NURSE NOTES: Dr. Gomes made aware of result of Venous duplex. Per Dr. Gomes, Xarelto 15mg PO BID, okay to ambulate to bathroom. Order noted, entered, carried out. Will continue to monitor.
[2019-01-23] MEDS: Xarelto 15mg tab ORAL SCH ×2 (14:43→17:34)
--- NOTE | 2019-01-23 14:58 | NUR ---
PT Note Patient is positive for DVT on the left LE. Patient has just been started on anticoagulants. Will hold PT today and check again in AM.
--- NOTE | 2019-01-23 15:01 | Consultation ---
History of Present Illness General Date patient seen: Jan 23, 2019 Time patient seen: 02:55 Chief Complaint: Multiple Trauma/Fall Present Illness HPI S: Pt seen bedside for L hallux loosened nail. Pt states her nail has been loosened for 8 days. Denies any acute SOI, relates moderate pain to L hallux. Allergies: Coded Allergies: No Known Allergies (Unverified , 01/26/18) Medication History Scheduled Montelukast Sodium* (Montelukast Sodium*), 10 MG ORAL HS, (Reported) Scheduled PRN Ibuprofen (Ibuprofen*), 650 MG ORAL Q8HR PRN for For Pain, (Reported) Meclizine Hcl* (Meclizine*), 12.5 MG ORAL DAILY PRN for for dizziness, (Reported ) Discontinued Medications Acetaminophen* (Acetaminophen Extra Strength*), 500 MG ORAL Q8H PRN for Fever/ Headache/Mild Pain Discontinued Reason: Pt stopped taking med Patient History Healthcare decision maker Resuscitation status Full Code Advanced Directive on File No Physical Exam Physical Exam Narrative O: Focused LLE: Derm: 90% loosened nail noted, attached at cuticle. No acute SOI are noted, no active purulent drainage or ascending erythema is noted. Vasc: +2/4 DP/PT pulses Neuro: SILT intact MSK: (+) POP to Left hallux nail , MS/ROM deferred secondary to pain. Last 24 Hour Vital Signs Date Time Temp Pulse Resp B/P (MAP) Pulse Ox O2 Delivery O2 Flow Rate FiO2 01/23/19 12:00 55 01/23/19 12:00 98.5 57 18 143/68 (93) 100 01/23/19 09:04 65 166/63 01/23/19 09:00 Room Air 01/23/19 08:00 68 01/23/19 08:00 97.3 65 18 166/63 (97) 96 01/23/19 04:00 62 01/23/19 04:00 96.6 65 20 165/81 (109) 96 01/23/19 00:00 97.9 63 18 156/80 (105) 98 01/23/19 00:00 53 01/22/19 21:00 Room Air 01/22/19 20:00 74 01/22/19 20:00 97.9 52 19 144/66 (92) 98 01/22/19 16:00 45 01/22/19 16:00 98.2 60 18 149/64 (92) 97 60 Intake and Output 01/22/19 01/23/19 18:59 06:59 Intake Total 640 ml 240 ml Balance 640 ml 240 ml Intake Oral 640 ml 240 ml # Voids 2 2 Laboratory Tests Test 01/23/19 05:40 White Blood Count 4.7 K/UL (4.8-10.8) L Red Blood Count 4.26 M/UL (4.20-5.40) Hemoglobin 12.3 G/DL (12.0-16.0) Hematocrit 38.5 % (37.0-47.0) Mean Corpuscular Volume 91 FL (80-99) Mean Corpuscular Hemoglobin 29.0 PG (27.0-31.0) Mean Corpuscular Hemoglobin Concent 32.1 G/DL (32.0-36.0) Red Cell Distribution Width 13.7 % (11.6-14.8) Platelet Count 192 K/UL (150-450) Mean Platelet Volume 6.9 FL (6.5-10.1) Neutrophils (%) (Auto) 52.6 % (45.0-75.0) Lymphocytes (%) (Auto) 29.2 % (20.0-45.0) Monocytes (%) (Auto) 10.6 % (1.0-10.0) H Eosinophils (%) (Auto) 5.8 % (0.0-3.0) H Basophils (%) (Auto) 1.7 % (0.0-2.0) Sodium Level 143 MMOL/L (136-145) Potassium Level 4.3 MMOL/L (3.5-5.1) Chloride Level 108 MMOL/L (98-107) H Carbon Dioxide Level 28 MMOL/L (21-32) Anion Gap 7 mmol/L (5-15) Blood Urea Nitrogen 23 mg/dL (7-18) H Creatinine 1.0 MG/DL (0.55-1.30) Estimat Glomerular Filtration Rate mL/min (>60) Glucose Level 87 MG/DL (74-106) Calcium Level 9.5 MG/DL (8.5-10.1) Height (Feet): 5 Height (Inches): 4.00 Weight (Pounds): 177 Medications Current Medications Medications (Trade) Dose Ordered Sig/Rosalina Route PRN Reason Start Time Stop Time Status Last Admin Dose Admin Acetaminophen (Tylenol) 650 mg Q4H PRN ORAL fever 01/21/19 14:00 02/20/19 13:59 01/22/19 09:46 Ceftriaxone Sodium 1 gm/ Dextrose 55 ml @ 110 mls/hr DAILY IVPB 01/23/19 09:00 01/30/19 08:59 01/23/19 09:04 Dextrose (Dextrose 50%) 25 ml Q30M PRN IV Hypoglycemia 01/21/19 14:00 02/20/19 13:59 Dextrose (Dextrose 50%) 50 ml Q30M PRN IV Hypoglycemia 01/21/19 14:00 02/20/19 13:59 Lidocaine HCl (Xylocaine 2% MPF) 3 ml ONCE ONCE INJ 01/23/19 15:00 01/23/19 15:01 UNV Lorazepam (Ativan 2mg/ml 1ml) 0.5 mg Q4H PRN IV For Anxiety 01/21/19 14:00 01/28/19 13:59 Montelukast Sodium (Singulair) 10 mg QHS ORAL 01/21/19 21:00 02/20/19 20:59 01/22/19 21:15 Morphine Sulfate (Morphine Sulfate) 1 mg Q4H PRN IVP For Pain 01/21/19 14:00 01/28/19 13:59 01/23/19 11:22 Ondansetron HCl (Zofran) 4 mg Q6H PRN IVP Nausea & Vomiting 01/21/19 14:00 02/20/19 13:59 Polyethylene Glycol (Miralax) 17 gm HSPRN PRN ORAL Constipation 01/21/19 14:00 02/20/19 13:59 Rivaroxaban (Xarelto) 15 mg BID ORAL 01/23/19 14:30 02/22/19 14:29 01/23/19 14:43 Zolpidem Tartrate (Ambien) 5 mg HSPRN PRN ORAL Insomnia 01/21/19 14:00 01/28/19 13:59 Assessment/Plan Assessment/Plan: A: L hallux loosened nail, secondary trauma with maggot infestation. Syncope UTI Anemia P: - Pt seen and evaluated. - Discuss findings with patient. - Bedside consent obtained for L hallux nail removal. - Procedure details: L hallux digital block performed, nail avulsed in total, nail bed intact, maggots were noted post nail removal (+) mal-odor, negative for purulence aseptic technique. Pt tolerated procedure well. - Cont IV Abx. - Left foot placed in basin mixed with NS and betadine, for 30 minutes. - L hallux dressed with betadine. - Rec daily betadine dressing to L hallux. - Left foot XR pending. - Podiatry will cont to monitor. Jer Gorman DPM Jan 23, 2019 15:01
[2019-01-23] MEDS ORDERED: Lidocaine 2% MPF 5ml Vial INJ ONE (15:15)
[2019-01-23] MEDS ORDERED: Lidocaine 2% MPF 5ml Vial INJ SCH (15:30)
--- NOTE | 2019-01-23 15:40 | NUR ---
NURSE NOTES: Per Dr. Gorman, soak left foot for 30 min, and Betadine dressing daily and prn. Order noted, entered, carried out.
[2019-01-23 16:00] VITALS: BP 133/48
--- NOTE | 2019-01-23 19:15 | NUR ---
HAND-OFF: Report given to DONNA Rubio.
--- NOTE | 2019-01-23 19:20 | NUR ---
NURSE NOTES: Received patient from DONNA Poole. Patient was awake, talkative, and laying in bed comfortably. Patient showed no signs of distress. Patient is Eritrean speaking, but able to make needs known. Dressing on left toe dry and intact. Bed in lowest position, brakes on, and call light within reach. Will continue with plan of care.
[2019-01-23 20:00] VITALS: BP 147/61
[2019-01-23] MEDS: Montelukast 10mg tablet ORAL SCH (20:56)
[2019-01-24] VITALS: BP 124/60
--- NOTE | 2019-01-24 03:35 | NUR ---
NURSE NOTES: Patient is asleep in semi-decker's position. No signs of distress or pain noted at this time. Will continue with plan of care.
[2019-01-24 04:00] VITALS: BP 127/53
--- NOTE | 2019-01-24 06:22 | Hematology/Onc Progress Note ---
Assessment/Plan Assessment/Plan # Left-sided DVT with nonocclusive thrombus in the left popliteal vein. --> have started her on xarelto 15mg po bid --> for 3 weeks continue then 20mg --> appears nonprovoked --> 3 mo of anticoag recommended total unless nonreversible rf # Leukopenia with decrease wbc --> consider us abd if hep and hiv neg --> currently hep and hiv ordered --> trend as needed, neupo prn # Syncope. --> ivf given, tele as needed, monitor for arrythmia # UTI. --> on ctx # Shortness of breath. --> breathing treatments have been started # Dvt ppx with xarelto Time of note does not correspond to when patient was seen. Greatly appreciate consultation. Subjective HEENT: Denies: no symptoms, eye pain, blurred vision, tearing, double vision, ear pain, ear discharge, nose pain, nose congestion, throat pain, throat swelling, mouth pain, mouth swelling, other Cardiovascular: Denies: no symptoms, chest pain, edema, irregular heart rate, lightheadedness, palpitations, syncope, other Respiratory: Denies: no symptoms, cough, shortness of breath, SOB with excertion, SOB at rest, sputum, wheezing, other Gastrointestinal/Abdominal: Denies: no symptoms, abdomen distended, abdominal pain, black stools, tarry stools, blood in stool, constipated, diarrhea, difficulty swallowing, nausea, poor appetite, poor fluid intake, rectal bleeding , vomiting, other Genitourinary: Denies: no symptoms, burning, discharge, frequency, flank pain, hematuria, incontinence, pain, urgency, other Neurologic/Psychiatric: Denies: no symptoms, anxiety, depressed, emotional problems, headache, numbness, paresthesia, pre-existing deficit, seizure, tingling, tremors, weakness, other Endocrine: Denies: no symptoms, excessive sweating, flushing, intolerance to cold, intolerance to heat, increased hunger, increased thirst, increased urine, unexplained weight gain, unexplained weight loss, other Allergies: Coded Allergies: No Known Allergies (Unverified , 01/26/18) Subjective 01/24: no events to report, no bleeding overnight, have started xarelto Objective Objective Current Medications Medications (Trade) Dose Ordered Sig/Rosalina Route PRN Reason Start Time Stop Time Status Last Admin Dose Admin Acetaminophen (Tylenol) 650 mg Q4H PRN ORAL fever 01/21/19 14:00 02/20/19 13:59 01/22/19 09:46 Ceftriaxone Sodium 1 gm/ Dextrose 55 ml @ 110 mls/hr DAILY IVPB 01/23/19 09:00 01/30/19 08:59 01/23/19 09:04 Dextrose (Dextrose 50%) 25 ml Q30M PRN IV Hypoglycemia 01/21/19 14:00 02/20/19 13:59 Dextrose (Dextrose 50%) 50 ml Q30M PRN IV Hypoglycemia 01/21/19 14:00 02/20/19 13:59 Lorazepam (Ativan 2mg/ml 1ml) 0.5 mg Q4H PRN IV For Anxiety 01/21/19 14:00 01/28/19 13:59 Montelukast Sodium (Singulair) 10 mg QHS ORAL 01/21/19 21:00 02/20/19 20:59 01/23/19 20:56 Morphine Sulfate (Morphine Sulfate) 1 mg Q4H PRN IVP For Pain 01/21/19 14:00 01/28/19 13:59 01/23/19 20:57 Ondansetron HCl (Zofran) 4 mg Q6H PRN IVP Nausea & Vomiting 01/21/19 14:00 02/20/19 13:59 Polyethylene Glycol (Miralax) 17 gm HSPRN PRN ORAL Constipation 01/21/19 14:00 02/20/19 13:59 Rivaroxaban (Xarelto) 15 mg BID ORAL 01/23/19 14:30 02/22/19 14:29 01/23/19 17:34 Zolpidem Tartrate (Ambien) 5 mg HSPRN PRN ORAL Insomnia 01/21/19 14:00 01/28/19 13:59 Last 24 Hour Vital Signs Date Time Temp Pulse Resp B/P (MAP) Pulse Ox O2 Delivery O2 Flow Rate FiO2 01/24/19 04:00 98.1 44 16 127/53 (77) 95 01/24/19 04:00 58 01/24/19 00:00 67 01/24/19 00:00 98.0 65 18 124/60 (81) 97 01/23/19 21:00 Room Air 01/23/19 20:00 48 01/23/19 20:00 96.1 58 16 147/61 (89) 95 01/23/19 16:00 60 01/23/19 16:00 98.3 62 18 133/48 (76) 100 01/23/19 12:00 55 01/23/19 12:00 98.5 57 18 143/68 (93) 100 01/23/19 09:04 65 166/63 01/23/19 09:00 Room Air 01/23/19 08:00 68 01/23/19 08:00 97.3 65 18 166/63 (97) 96 01/23/19 04:00 62 01/23/19 04:00 96.6 65 20 165/81 (109) 96 01/23/19 00:00 97.9 63 18 156/80 (105) 98 01/23/19 00:00 53 01/22/19 21:00 Room Air 01/22/19 20:00 74 01/22/19 20:00 97.9 52 19 144/66 (92) 98 01/22/19 16:00 45 01/22/19 16:00 98.2 60 18 149/64 (92) 97 60 01/22/19 12:00 43 01/22/19 12:00 97.0 54 18 127/59 (81) 97 54 01/22/19 09:00 Room Air 01/22/19 08:00 97.2 43 18 138/53 (81) 96 43 01/22/19 08:00 42 Intake and Output 01/23/19 01/24/19 19:00 07:00 Intake Total 600 ml Balance 600 ml Intake Oral 600 ml # Voids 3 2 Labs Test 01/21/19 12:19 01/21/19 13:26 01/22/19 05:45 01/23/19 05:40 White Blood Count 4.8 K/UL (4.8-10.8) 4.5 K/UL (4.8-10.8) 4.7 K/UL (4.8-10.8) Red Blood Count 4.29 M/UL (4.20-5.40) 4.01 M/UL (4.20-5.40) 4.26 M/UL (4.20-5.40) Hemoglobin 12.5 G/DL (12.0-16.0) 11.8 G/DL (12.0-16.0) 12.3 G/DL (12.0-16.0) Hematocrit 39.0 % (37.0-47.0) 36.6 % (37.0-47.0) 38.5 % (37.0-47.0) Mean Corpuscular Volume 91 FL (80-99) 91 FL (80-99) 91 FL (80-99) Mean Corpuscular Hemoglobin 29.1 PG (27.0-31.0) 29.4 PG (27.0-31.0) 29.0 PG (27.0-31.0) Mean Corpuscular Hemoglobin Concent 32.0 G/DL (32.0-36.0) 32.2 G/DL (32.0-36.0) 32.1 G/DL (32.0-36.0) Red Cell Distribution Width 13.8 % (11.6-14.8) 13.6 % (11.6-14.8) 13.7 % (11.6-14.8) Platelet Count 232 K/UL (150-450) 192 K/UL (150-450) 192 K/UL (150-450) Mean Platelet Volume 7.0 FL (6.5-10.1) 7.0 FL (6.5-10.1) 6.9 FL (6.5-10.1) Neutrophils (%) (Auto) 58.2 % (45.0-75.0) 49.0 % (45.0-75.0) 52.6 % (45.0-75.0) Lymphocytes (%) (Auto) 25.5 % (20.0-45.0) 33.9 % (20.0-45.0) 29.2 % (20.0-45.0) Monocytes (%) (Auto) 10.5 % (1.0-10.0) 10.4 % (1.0-10.0) 10.6 % (1.0-10.0) Eosinophils (%) (Auto) 4.4 % (0.0-3.0) 5.5 % (0.0-3.0) 5.8 % (0.0-3.0) Basophils (%) (Auto) 1.4 % (0.0-2.0) 1.3 % (0.0-2.0) 1.7 % (0.0-2.0) Sodium Level 142 MMOL/L (136-145) 145 MMOL/L (136-145) 143 MMOL/L (136-145) Potassium Level 4.5 MMOL/L (3.5-5.1) 4.5 MMOL/L (3.5-5.1) 4.3 MMOL/L (3.5-5.1) Chloride Level 107 MMOL/L (98-107) 109 MMOL/L (98-107) 108 MMOL/L (98-107) Carbon Dioxide Level 28 MMOL/L (21-32) 26 MMOL/L (21-32) 28 MMOL/L (21-32) Anion Gap 7 mmol/L (5-15) 10 mmol/L (5-15) 7 mmol/L (5-15) Blood Urea Nitrogen 38 mg/dL (7-18) 26 mg/dL (7-18) 23 mg/dL (7-18) Creatinine 1.1 MG/DL (0.55-1.30) 1.0 MG/DL (0.55-1.30) 1.0 MG/DL (0.55-1.30) Estimat Glomerular Filtration Rate mL/min (>60) mL/min (>60) mL/min (>60) Glucose Level 113 MG/DL (74-106) 87 MG/DL (74-106) 87 MG/DL (74-106) Calcium Level 9.4 MG/DL (8.5-10.1) 9.2 MG/DL (8.5-10.1) 9.5 MG/DL (8.5-10.1) Total Bilirubin 0.5 MG/DL (0.2-1.0) 0.5 MG/DL (0.2-1.0) Aspartate Amino Transf (AST/SGOT) 24 U/L (15-37) 22 U/L (15-37) Alanine Aminotransferase (ALT/SGPT) 23 U/L (12-78) 21 U/L (12-78) Alkaline Phosphatase 54 U/L (46-116) 46 U/L (46-116) Total Creatine Kinase 99 U/L (26-308) Creatine Kinase MB 1.5 NG/ML (0.0-3.6) Creatine Kinase MB Relative Index 1.5 Troponin I 0.000 ng/mL (0.000-0.056) Pro-B-Type Natriuretic Peptide 367 pg/mL (0-125) Total Protein 7.3 G/DL (6.4-8.2) 6.6 G/DL (6.4-8.2) Albumin 3.6 G/DL (3.4-5.0) 3.2 G/DL (3.4-5.0) Globulin 3.7 g/dL 3.4 g/dL Albumin/Globulin Ratio 1.0 (1.0-2.7) 0.9 (1.0-2.7) Lipase 279 U/L (73-393) Urine Color Pale yellow Urine Appearance Clear Urine pH 7 (4.5-8.0) Urine Specific [place] 1.005 (1.005-1.035) Urine Protein Negative (NEGATIVE) Urine Glucose (UA) Negative (NEGATIVE) Urine Ketones Negative (NEGATIVE) Urine Blood Negative (NEGATIVE) Urine Nitrite Negative (NEGATIVE) Urine Bilirubin Negative (NEGATIVE) Urine Urobilinogen Normal MG/DL (0.0-1.0) Urine Leukocyte Esterase 2+ (NEGATIVE) Urine RBC 0 /HPF (0 - 2) Urine WBC 2-4 /HPF (0 - 2) Urine Squamous Epithelial Cells Occasional /LPF Urine Bacteria None /HPF (NONE) Triglycerides Level 103 MG/DL (30-150) Cholesterol Level 208 MG/DL (< 200) LDL Cholesterol 137 mg/dL (<100) HDL Cholesterol 46 MG/DL (40-60) Cholesterol/HDL Ratio 4.5 (3.3-4.4) Thyroid Stimulating Hormone (TSH) 1.892 uiU/mL (0.358-3.740) Height (Feet): 5 Height (Inches): 4.00 Weight (Pounds): 177 Objective Gen: NAD, A+O x2 Pulm: CTAB CV: RRR Abd: soft, nt, nd Ext: Left hallux nail erythema, currently in dressing Gustavo Gomes MD Jan 24, 2019 06:22
--- NOTE | 2019-01-24 07:11 | NUR ---
HAND-OFF: Report given to DONNA Poole. Patient asleep, resting comfortably in semi-decker's position. Patient in stable condition.
--- NOTE | 2019-01-24 07:19 | NUR ---
NURSE NOTES: Received report from DONNA Rubio. Patient in bed resting, no active s/s cardiac, respiratory distress noticed at this time. Patient on room air, AOx4, forgetful, denies pain at this time. Patient took out dressing on left hallux, no bleeding. SB with HR 44. IV on right AC 20G, asymptomatic, patent, intact. Bed in lowest position, side rails upx3, bed alarm on, call light within reach. Will continue to monitor.
[2019-01-24 07:34] LABS: BASOPHILS % (AUTO) 1.4 % (0.0-2.0); EOSINOPHILS % (AUTO) 4.6 % (0.0-3.0); HEMATOCRIT 39.7 % (37.0-47.0); HEMOGLOBIN 12.8 G/DL (12.0-16.0); LYMPHOCYTES % (AUTO) 32.7 % (20.0-45.0); MEAN CORPUSCULAR VOLUME 91 FL (80-99); MONOCYTES % (AUTO) 10.2 % (1.0-10.0); NEUTROPHILS % (AUTO) 51.2 % (45.0-75.0); PLATELET COUNT 195 K/UL (150-450); RED BLOOD COUNT 4.38 M/UL (4.20-5.40); RED CELL DISTRIBUTION WIDTH 13.4 % (11.6-14.8); WHITE BLOOD COUNT 4.1 K/UL (4.8-10.8)
[2019-01-24 08:00] VITALS: BP 111/40
[2019-01-24] MEDS: Xarelto 15mg tab ORAL SCH (08:09)
[2019-01-24] MEDS: cefTRIAXone 1 GM in D5W 55 ML IVPB SCH (08:09)
--- NOTE | 2019-01-24 08:45 | Cardiology Report ---
APPROVED REPORT EXAM: Two-dimensional and M-mode echocardiogram with Doppler and color Doppler. INDICATION Arrhythmia M-Mode DIMENSIONS IVSd1.1 (0.7-1.1cm)Left Atrium (MM)4.0 (1.6-4.0cm) LVDd5.2 (3.5-5.6cm)Aortic Root2.6 (2.0-3.7cm) PWd1.2 (0.7-1.1cm)Aortic Cusp Exc.1.7 (1.5-2.0cm) LVDs3.0 (2.5-4.0cm) PWs1.9 cm Normal left ventricular chamber size, systolic function and wall motion. Left ventricular ejection fraction estimated to be 60%. Mild left ventricular hypertrophy. Anterior Echo-free space, may be due to pericardial fat or effusion. All other cardiac chamber sizes are within normal limits. Focal aortic valve sclerosis with adequate cusp excursion. Thickened mitral valve leaflets with normal excursion. Mitral annulus and aortic root calcification. Pulmonic valve not well visualized. Normal tricuspid valve structure. IVC dilated at 2.2 cm with physiological collapse. A color flow and spectral Doppler study was performed and revealed: Mild to moderate aortic regurgitation. Mild mitral regurgitation. Mitral diastolic velocities suggest mild left ventricular diastolic dysfunction (Grade I). Trace tricuspid regurgitation. Tricuspid systolic velocities suggests peak right ventricular systolic pressure of 34 mmHg. Trace pulmonic regurgitation present.
[2019-01-24 08:56] LABS: ANION GAP 8 mmol/L (5-15); BLOOD UREA NITROGEN 24 mg/dL (7-18); CARBON DIOXIDE 28 MMOL/L (21-32); CHLORIDE 104 MMOL/L (98-107); POTASSIUM 4.4 MMOL/L (3.5-5.1); SODIUM 140 MMOL/L (136-145)
--- NOTE | 2019-01-24 08:58 | NUR ---
RADIOLOGY: LT. FOOT X-RAYS COMPLETED 0820HRS. NF
--- NOTE | 2019-01-24 09:50 | General Progress Note ---
Assessment/Plan Problem List: (1) Avulsion of toenail of left foot ICD Codes: S91.209A - Unspecified open wound of unspecified toe(s) with damage to nail, initial encounter SNOMED: 029189966 (2) Anemia ICD Codes: D64.9 - Anemia, unspecified SNOMED: 378241917 (3) Malnutrition ICD Codes: E46 - Unspecified protein-calorie malnutrition SNOMED: 94597565 (4) Fall ICD Codes: W19.XXXA - Unspecified fall, initial encounter SNOMED: 7635984, 913792117 Qualifiers: Qualified Codes: W19.XXXA - Unspecified fall, initial encounter (5) Cardiac syncope ICD Codes: R55 - Syncope and collapse SNOMED: 321212158, 35039092 Status: stable, progressing Assessment/Plan: pt diet cardiac f/u dc if clear Subjective Constitutional: Reports: weakness Allergies: Coded Allergies: No Known Allergies (Unverified , 01/26/18) All Systems: reviewed and negative except above Subjective calm in bed Objective Last 24 Hour Vital Signs Date Time Temp Pulse Resp B/P (MAP) Pulse Ox O2 Delivery O2 Flow Rate FiO2 01/24/19 09:00 Room Air 01/24/19 08:00 51 01/24/19 08:00 97.5 63 22 111/40 (63) 97 01/24/19 04:00 98.1 44 16 127/53 (77) 95 01/24/19 04:00 58 01/24/19 00:00 67 01/24/19 00:00 98.0 65 18 124/60 (81) 97 01/23/19 21:00 Room Air 01/23/19 20:00 48 01/23/19 20:00 96.1 58 16 147/61 (89) 95 01/23/19 16:00 60 01/23/19 16:00 98.3 62 18 133/48 (76) 100 01/23/19 12:00 55 01/23/19 12:00 98.5 57 18 143/68 (93) 100 Intake and Output 01/23/19 01/24/19 19:00 07:00 Intake Total 600 ml Balance 600 ml Intake Oral 600 ml # Voids 3 2 Laboratory Tests 01/24/19 05:50: White Blood Count 4.1L, Red Blood Count 4.38, Hemoglobin 12.8, Hematocrit 39.7, Mean Corpuscular Volume 91, Mean Corpuscular Hemoglobin 29.2, Mean Corpuscular Hemoglobin Concent 32.2, Red Cell Distribution Width 13.4, Platelet Count 195, Mean Platelet Volume 6.8, Neutrophils (%) (Auto) 51.2, Lymphocytes (%) (Auto) 32.7, Monocytes (%) (Auto) 10.2H, Eosinophils (%) (Auto) 4.6H, Basophils (%) ( Auto) 1.4, Sodium Level 140, Potassium Level 4.4, Chloride Level 104, Carbon Dioxide Level 28, Anion Gap 8, Blood Urea Nitrogen 24H, Creatinine 1.0, Estimat Glomerular Filtration Rate , Glucose Level 99, Calcium Level [Pending], Hepatitis A IgM Antibody [Pending], Hepatitis B Surface Antigen [Pending], Hepatitis B Core IgM Antibody [Pending], Hepatitis C Antibody [Pending], HIV (1& 2) Antibody Rapid Negative Height (Feet): 5 Height (Inches): 4.00 Weight (Pounds): 177 General Appearance: lethargic EENT: normal ENT inspection Neck: normal alignment Cardiovascular: normal peripheral pulses, normal rate, regular rhythm Respiratory/Chest: chest wall non-tender, lungs clear, normal breath sounds Abdomen: normal bowel sounds, non tender, soft Extremities: normal inspection Edema: no edema noted Arm (L), no edema noted Arm (R), no edema noted Leg (L), no edema noted Leg (R), no edema noted Pedal (L), no edema noted Pedal (R), no edema noted Generalized Neurologic: responsive, motor weakness Skin: normal pigmentation, warm/dry Objective left big toe nail avulsed Larry Bellamy DO Jan 24, 2019 09:50
[2019-01-24 09:52] LABS: CALCIUM 9.5 MG/DL (8.5-10.1)
--- NOTE | 2019-01-24 10:28 | NUR ---
*-* NO INSURANCE INFORMATION IN THE BAR UNABLE TO SEND CLINICALS OR REVIEWS *-*
[2019-01-24] MEDS ORDERED: XARELTO15 MG ORAL (11:10)
--- NOTE | 2019-01-24 11:10 | NUR ---
CASE MANAGEMENT:REVIEW 01/23/19 SI: LT POPLITEAL NON OCCLUSIVE DVT LT FOOT TOENAIL AVULSION. SYNCOPE 97.5 63 22 111/40 97% ON RA BUN+23 IS: XARELTO PO BID IV ROCEPHIN QD SINGULAR PO QHS IV MORPHINE Q4HRS PRN : TELEMETRY STATUS 01/24/19 DISCHARGE HOME IF CLEARED BY SUPERINTENDENT OPERATING
--- NOTE | 2019-01-24 11:14 | NUR ---
DISCHARGE PLANNING FAXED CLINICALS TO [facility] T:[phone] F:[phone] [phone]
--- NOTE | 2019-01-24 11:19 | Consultation ---
History of Present Illness General Date patient seen: Jan 24, 2019 Chief Complaint: Multiple Trauma/Fall Present Illness HPI 83-year-old female history of dementia presents with possible mechanical fall. She denied any chest pain or shortness of breath patient presents for evaluation. Symptoms were mild she endorses a mild headache in the back of her head no aggravating or alleviating factors. She had positive DVT on ultra sound and was started on Xarelto. Allergies: Coded Allergies: No Known Allergies (Unverified , 01/26/18) Medication History Scheduled Montelukast Sodium* (Montelukast Sodium*), 10 MG ORAL HS, (Reported) Rivaroxaban (Xarelto), 15 MG ORAL EVERY 12 HOURS Scheduled PRN Ibuprofen (Ibuprofen*), 650 MG ORAL Q8HR PRN for For Pain, (Reported) Meclizine Hcl* (Meclizine*), 12.5 MG ORAL DAILY PRN for for dizziness, (Reported ) Discontinued Medications Acetaminophen* (Acetaminophen Extra Strength*), 500 MG ORAL Q8H PRN for Fever/ Headache/Mild Pain Discontinued Reason: Pt stopped taking med Patient History Healthcare decision maker Resuscitation status Full Code Advanced Directive on File No Past Medical/Surgical History Past Medical/Surgical History: (1) Advanced dementia Review of Systems All Other Systems: negative except mentioned in HPI Physical Exam General Appearance: WD/WN Lines, tubes and drains: peripheral HEENT: normocephalic, atraumatic Neck: non-tender, normal alignment Respiratory/Chest: chest wall non-tender, lungs clear Breasts: no masses Cardiovascular/Chest: normal peripheral pulses Abdomen: normal bowel sounds, non tender Extremities: normal range of motion, non-tender Skin Exam: normal pigmentation Last 24 Hour Vital Signs Date Time Temp Pulse Resp B/P (MAP) Pulse Ox O2 Delivery O2 Flow Rate FiO2 01/24/19 09:00 Room Air 01/24/19 08:00 51 01/24/19 08:00 97.5 63 22 111/40 (63) 97 01/24/19 04:00 98.1 44 16 127/53 (77) 95 01/24/19 04:00 58 01/24/19 00:00 67 01/24/19 00:00 98.0 65 18 124/60 (81) 97 01/23/19 21:00 Room Air 01/23/19 20:00 48 01/23/19 20:00 96.1 58 16 147/61 (89) 95 01/23/19 16:00 60 01/23/19 16:00 98.3 62 18 133/48 (76) 100 01/23/19 12:00 55 01/23/19 12:00 98.5 57 18 143/68 (93) 100 Intake and Output 01/23/19 01/24/19 19:00 07:00 Intake Total 600 ml Balance 600 ml Intake Oral 600 ml # Voids 3 2 Laboratory Tests Test 01/24/19 05:50 White Blood Count 4.1 K/UL (4.8-10.8) L Red Blood Count 4.38 M/UL (4.20-5.40) Hemoglobin 12.8 G/DL (12.0-16.0) Hematocrit 39.7 % (37.0-47.0) Mean Corpuscular Volume 91 FL (80-99) Mean Corpuscular Hemoglobin 29.2 PG (27.0-31.0) Mean Corpuscular Hemoglobin Concent 32.2 G/DL (32.0-36.0) Red Cell Distribution Width 13.4 % (11.6-14.8) Platelet Count 195 K/UL (150-450) Mean Platelet Volume 6.8 FL (6.5-10.1) Neutrophils (%) (Auto) 51.2 % (45.0-75.0) Lymphocytes (%) (Auto) 32.7 % (20.0-45.0) Monocytes (%) (Auto) 10.2 % (1.0-10.0) H Eosinophils (%) (Auto) 4.6 % (0.0-3.0) H Basophils (%) (Auto) 1.4 % (0.0-2.0) Sodium Level 140 MMOL/L (136-145) Potassium Level 4.4 MMOL/L (3.5-5.1) Chloride Level 104 MMOL/L (98-107) Carbon Dioxide Level 28 MMOL/L (21-32) Anion Gap 8 mmol/L (5-15) Blood Urea Nitrogen 24 mg/dL (7-18) H Creatinine 1.0 MG/DL (0.55-1.30) Estimat Glomerular Filtration Rate mL/min (>60) Glucose Level 99 MG/DL (74-106) Calcium Level 9.5 MG/DL (8.5-10.1) Hepatitis A IgM Antibody Pending Hepatitis B Surface Antigen Pending Hepatitis B Core IgM Antibody Pending Hepatitis C Antibody Pending HIV (1&2) Antibody Rapid Negative (NEGATIVE) Height (Feet): 5 Height (Inches): 4.00 Weight (Pounds): 177 Medications Current Medications Medications (Trade) Dose Ordered Sig/Rosalina Route PRN Reason Start Time Stop Time Status Last Admin Dose Admin Acetaminophen (Tylenol) 650 mg Q4H PRN ORAL fever 01/21/19 14:00 02/20/19 13:59 01/22/19 09:46 Ceftriaxone Sodium 1 gm/ Dextrose 55 ml @ 110 mls/hr DAILY IVPB 01/23/19 09:00 01/30/19 08:59 01/24/19 08:09 Dextrose (Dextrose 50%) 25 ml Q30M PRN IV Hypoglycemia 01/21/19 14:00 02/20/19 13:59 Dextrose (Dextrose 50%) 50 ml Q30M PRN IV Hypoglycemia 01/21/19 14:00 02/20/19 13:59 Lorazepam (Ativan 2mg/ml 1ml) 0.5 mg Q4H PRN IV For Anxiety 01/21/19 14:00 01/28/19 13:59 Montelukast Sodium (Singulair) 10 mg QHS ORAL 01/21/19 21:00 02/20/19 20:59 01/23/19 20:56 Morphine Sulfate (Morphine Sulfate) 1 mg Q4H PRN IVP For Pain 01/21/19 14:00 01/28/19 13:59 01/23/19 20:57 Ondansetron HCl (Zofran) 4 mg Q6H PRN IVP Nausea & Vomiting 01/21/19 14:00 02/20/19 13:59 Polyethylene Glycol (Miralax) 17 gm HSPRN PRN ORAL Constipation 01/21/19 14:00 02/20/19 13:59 Rivaroxaban (Xarelto) 15 mg BID ORAL 01/23/19 14:30 02/22/19 14:29 01/24/19 08:09 Zolpidem Tartrate (Ambien) 5 mg HSPRN PRN ORAL Insomnia 01/21/19 14:00 01/28/19 13:59 Assessment/Plan Problem List: (1) Acute encephalopathy ICD Codes: G93.40 - Encephalopathy, unspecified SNOMED: 96968889, 013147494 (2) DVT (deep venous thrombosis) ICD Codes: I82.409 - Acute embolism and thrombosis of unspecified deep veins of unspecified lower extremity SNOMED: 079166905 Assessment/Plan: continue Xarelto, check h/h symptomatic treatment Melissa Willams MD Jan 24, 2019 11:19
--- NOTE | 2019-01-24 11:41 | Diagnostic Imaging Report ---
Indication: Foot pain Comparison: None Findings: 3 views of the left foot were obtained. There is suggestion of a hammertoes involving the second through fifth toes with hyperextension of the MTP joints and slight flexion of the PIP joints. No fracture seen. No Malalignment otherwise identified. Mild plantar calcaneal spur noted. Bones are osteopenic. IMPRESSION: Hammertoes
[2019-01-24 12:00] VITALS: BP 128/62
--- NOTE | 2019-01-24 13:16 | NUR ---
*-* INSURANCE *-* ALL CLINICALS AND REVIEWS HAVE BEEN FAXED TO: [facility] F: [phone]
--- NOTE | 2019-01-24 16:00 | NUR ---
NURSE NOTES: Per Dr. Gomes and Dr. Willams discharge with Xarelto 15mg PO BID x 21 days then Xarelto 20mg PO daily x 3months. Patient career information specialist made aware. For ZIO PATCH per Dr. Lester, provide office number tele: [phone] make an appointment for outpatient.
--- NOTE | 2019-01-24 16:33 | NUR ---
NURSE NOTES: Patient discharged to home with home health per Dr. Bellamy. Patient's ID removed and placed in shredder. IV removed and monitoring analyst returned to panel monitor. Patient with child day care center worker, Adri, taking Uber per patient's preference in a stable condition. Patient discharged with all belongings including medication, Xarelto. Patient and child day care center worker educated for medication and care for left big toe.
--- NOTE | 2019-01-25 09:40 | Discharge Summary ---
Discharge Summary Discharge Summary _ DATE OF ADMISSION: 01/21/2019 DATE OF DISCHARGE: 01/24/2019 DISCHARGED BY: Dr. Bellamy REASON FOR ADMISSION: 83 years old female with past medical history of asthma, high cholesterol, presented after possible mechanical fall , While reaching for medication, she fell backward , and the chair slid out from under her . She did experienced loss of consciousness. Patient denies any chest pain or shortness of breath , while presenting for evaluation. Patient reported mild headache at the back of her head. Vital signs were stable. CT scan of the head revealed no acute intracranial bleeding or mass-effect. Age-related cerebral cortical volume loss loss was noted. Chest x-ray demonstrated cardiomegaly with mild interstitial congestion. Laboratory work-up revealed no leukocytosis, stable hemoglobin and hematocrit. BUN 38, creatinine 1.1. Troponin negative , pro BNP 367. Stable LFT and lipase. Urinalysis revealed +2 leukocyte esterase. 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 Patient was admitted to telemetry floor for cardiology evaluation and possible need for pacemaker. CONSULTANTS: motor coach tour operator dr. Lester hospitalist Dr. Willams livestock counter/oncologist Dr. Gomes termite technician Dr. Gorman [facility] COURSE: Patient admitted to telemetry floor. Patient started on gentle IV hydration with close monitoring of volumes, hemodynamic status and renal parameters. Echocardiogram demonstrated preserved ejection fraction of 60% with mild left ventricular hypertrophy. No evidence of wall motion abnormality. Right ventricular systolic pressure of 34. Venous duplex bilateral lower extremity revealed left-sided DVT with nonocclusive thrombus in the left popliteal vein. No evidence of DVT in the right lower extremity. Patient started on Xarelto. Oil Well Engineer closely followed. Patient was continuously monitored on telemetry . Patient had a right bundle branch block and left anterior fascicular block, but no evidence of intermittent complete block. Patient had few episodes of bradycardia, usually early in the morning after waking up. Per motor coach tour operator, no indication for pacemaker at this time. Oil Well Engineer recommended Zio patch as outpatient. Supplemental oxygen and bronchodilator treatment were on board as needed. Pulse oximetry remained stable on room air. Singular continued. No evidence of asthma exacerbation. Gum Remover seen patient for left hallux loosening nail secondary to trauma with maggot infestation. Per patient nail had been loosened for 8 days. Patient reported moderate pain to the left hallux. X-ray of the left foot revealed hammertoes. Bedside consent was obtained for left hallux nail removal. Patient tolerated procedure well . IV antibiotic continued. Left foot was placed in the basin mixed with normal saline and Betadine for 30 minutes. Left hallux was subsequently was dressed with Betadine. Gum Remover recommended daily Betadine dressing for left hallux to be done by home health services. Patient was on IV antibiotic/ceftriaxone for possible UTI and avulsion of left toenail. Mat Linker followed. Patient started on Xarelto for acute DVT per livestock counter recommendations/as mentioned above. Mat Linker recommended three months of anticoagulation therapy. Hemoglobin and hematocrit were closely monitored with goal to keep hemoglobin above 7. Hemoglobin and hematocrit remained at the baseline , prior to discharge hemoglobin 12.8, hematocrit 39.7. Patient noted to have leukopenia . HIV test was nonreactive. Hepatitis panel was negative. Counts were closely monitored, prior to discharge WBC 4.1. Pain management was addressed. Supportive care provided. Patient was working with physical therapist. Fall precautions maintained. Renal parameters were closely monitored. BUN from initial 38 down to 24 upon discharge. Creatinine remained stable. Patient clinically stabilized and was ready fro discharge home with home health services for wound care. Continue anticoagulation for 3 months. Outpatient follow up with motor coach tour operator for [employer]. FINAL DIAGNOSES: Status post fall Syncope Left fascicular block and right bundle branch block Possible UTI Acute encephalopathy Acute DVT left popliteal vein Avulsion of toenail of left foot /Left hallux loosened nail, secondary trauma with maggot infestation Status post left hallux nail removal at bedside Leukopenia DISCHARGE MEDICATIONS: See Medication Reconciliation list. DISCHARGE INSTRUCTIONS: Patient was discharged home with home health services. Follow up with primary care provider in one week. I have been assigned to dictate discharge summary for this account. I was not involved in the patient's management. Nely David NP Jan 25, 2019 09:40
--- NOTE | 2019-01-26 15:08 | NUR ---
*-* INSURANCE *-* DISCHARGE SUMMARY HAS BEEN FAXED TO: [facility] F: [phone]
== END 2019-01-24 15:45 | disposition home or self-care (01) | DRG 201 ==
LOC: EMR 12:05 → EDBEDREQ 13:24 → 2E 13:29
PROC: 0HTRXZZ Resection of Toe Nail, External Approach (ICD-10-PCS; principal; 2019-01-21)
DX: I45.2 Bifascicular block (principal); G93.40 Encephalopathy, unspecified; I82.432 Acute embolism and thrombosis of left popliteal vein; R55 Syncope and collapse; N39.0 Urinary tract infection, site not specified; D64.9 Anemia, unspecified; Z91.81 History of falling; S91.202A Unspecified open wound of left great toe with damage to nail, initial encounter; X58.XXXA Exposure to other specified factors, initial encounter; B87.9 Myiasis, unspecified; E46 Unspecified protein-calorie malnutrition; F03.90 Unspecified dementia, unspecified severity, without behavioral disturbance, psychotic disturbance, mood disturbance, and anxiety
CPT/HCPCS: 36415; 70450; 71045; 80048; 80053; 80061; 81003; 82550; 82553; 82962; 83690; 83880; 84443; 84484; 85025; 86703; 86705; 86709; 86803; 87081; 87340; 93005; 93306; 93970; 96360; 99285

== ENCOUNTER 2019-06-14 13:09 | Emergency (ER) | payer OTHER ==
[~2019-06-14] VITALS: Ht 160 cm; Wt 72.6 kg
--- NOTE | 2019-06-14 13:08 | NUR ---
ED Nurse Note: pt arrived RA 29 due to dizziness since home for x 3 days. per pt she went to wash dishes and had a mechanical fall. reports head pain and bilateral shoulder pain. no deformities noted. no hematoma or abrasions noted.
[~2019-06-14 13:09] MED LIST changes: +ASPIR 8181 MG ORAL; +IBUPROFEN200 MG ORAL; +MECLIZINE HCL12.5 MG ORAL; +MONTELUKAST SOD10 MG ORAL; +SINGULAIR10 MG ORAL; +XARELTO15 MG ORAL
--- NOTE | 2019-06-14 13:09 | NUR ---
ED Nurse Note: Hydrographic Surveyor at bedside
[2019-06-14] MEDS ORDERED: Meclizine 25mg tab ORAL ONE (13:15)
[2019-06-14 13:21] VITALS: BP 119/51
--- NOTE | 2019-06-14 13:24 | Emergency Room Report ---
History of Present Illness General Chief Complaint: Dizziness Source: Patient, EMS Present Illness HPI Is an 84-year-old female presents after acute onset of dizziness. Patient had fall from standing position. Reports of increased difficulty with balance. Suddenly fell to the ground.Previous history of similar symptoms in the past. Patient denies any fever. Patient denies any vomiting. Denies any extremity weakness. Reports having a mild headache. Allergies: Coded Allergies: No Known Allergies (Unverified , 01/26/18) Patient History Past Medical History: see triage record Reviewed Nursing Documentation: PMH: Agreed; PSxH: Agreed Nursing Documentation-PMH Past Medical History: No History, Except For Hx Cardiac Problems: Yes - high cholesterol Hx Asthma: Yes Hx Cancer: No Hx Syncope: Yes Review of Systems All Other Systems: negative except mentioned in HPI Physical Exam Vital Signs Date Time Temp Pulse Resp B/P (MAP) Pulse Ox O2 Delivery O2 Flow Rate FiO2 06/14/19 13:04 97.5 71 18 119/51 (73) 96 Room Air Sp02 EP Interpretation: reviewed, normal General Appearance: normal inspection, well appearing, no apparent distress, alert, GCS 15 Head: atraumatic ENT: normal ENT inspection, hearing grossly normal, normal voice Neck: normal inspection, full range of motion, supple, no bony tend Respiratory: normal inspection, lungs clear, normal breath sounds, no respiratory distress, no retraction, no wheezing Cardiovascular #1: regular rate, rhythm, no edema Gastrointestinal: normal inspection, normal bowel sounds, non tender, soft, no guarding, no hernia Genitourinary: no CVA tenderness Musculoskeletal: normal inspection, back normal, normal range of motion, other - Right lateral knee swelling, bilateral shoulder swelling Neurologic: alert, responsive, speech normal, normal inspection Psychiatric: normal inspection, judgement/insight normal, mood/affect normal Medical Decision Making Diagnostic Impression: Primary Impression: Fall Additional Impressions: Dementia Head injury ER Course Patient presented after a fall. Differential diagnosis includes not limited to CVA, vertigo, head injury among others. Because of complexity of patient's case laboratory tests and imaging studies were ordered. Patient's blood sugar was noted to be slightly elevated. She was noted to be awake and alert on arrival. EKG interpreted by me showed sinus bradycardia with a rate of [address] or T wave changes noted.Patient is to be stable for outpatient management. She was given prescription for medications for vertigo. Was discharged home with field nurse case manager. Advised to return if worse. The patient is advised to follow up with primary care doctor in 1-2 days. Patient is advised to return if any worsening condition or if any changes in status that are concerning. This report is dictated with [employer] chisel mortiser operator software which may occasionally lead to discrepancies related to use of this software. Labs Test 06/14/19 13:15 White Blood Count 4.7 K/UL (4.8-10.8) Red Blood Count 4.05 M/UL (4.20-5.40) Hemoglobin 12.6 G/DL (12.0-16.0) Hematocrit 37.4 % (37.0-47.0) Mean Corpuscular Volume 92 FL (80-99) Mean Corpuscular Hemoglobin 31.1 PG (27.0-31.0) Mean Corpuscular Hemoglobin Concent 33.6 G/DL (32.0-36.0) Red Cell Distribution Width 12.7 % (11.6-14.8) Platelet Count 299 K/UL (150-450) Mean Platelet Volume 6.9 FL (6.5-10.1) Neutrophils (%) (Auto) 59.7 % (45.0-75.0) Lymphocytes (%) (Auto) 27.0 % (20.0-45.0) Monocytes (%) (Auto) 7.8 % (1.0-10.0) Eosinophils (%) (Auto) 3.5 % (0.0-3.0) Basophils (%) (Auto) 2.0 % (0.0-2.0) Prothrombin Time 9.7 SEC (9.30-11.50) Prothromb Time International Ratio 0.9 (0.9-1.1) Activated Partial Thromboplast Time 27 SEC (23-33) Sodium Level 143 MMOL/L (136-145) Potassium Level 4.1 MMOL/L (3.5-5.1) Chloride Level 106 MMOL/L (98-107) Carbon Dioxide Level 27 MMOL/L (21-32) Anion Gap 10 mmol/L (5-15) Blood Urea Nitrogen 36 mg/dL (7-18) Creatinine 1.0 MG/DL (0.55-1.30) Estimat Glomerular Filtration Rate mL/min (>60) Glucose Level 132 MG/DL (74-106) Calcium Level 9.3 MG/DL (8.5-10.1) Total Bilirubin 0.5 MG/DL (0.2-1.0) Aspartate Amino Transf (AST/SGOT) 31 U/L (15-37) Alanine Aminotransferase (ALT/SGPT) 39 U/L (12-78) Alkaline Phosphatase 63 U/L (46-116) Troponin I 0.000 ng/mL (0.000-0.056) Total Protein 7.7 G/DL (6.4-8.2) Albumin 3.7 G/DL (3.4-5.0) Globulin 4.0 g/dL Albumin/Globulin Ratio 0.9 (1.0-2.7) Last Vital Signs Date Time Temp Pulse Resp B/P (MAP) Pulse Ox O2 Delivery O2 Flow Rate FiO2 06/14/19 13:21 97.5 71 18 119/51 96 Room Air Status: improved Disposition: HOME, SELF-CARE Condition: Stable Scripts Meclizine Hcl* (MECLIZINE*) 12.5 Mg Tablet 12.5 MG ORAL THREE TIMES A DAY, #14 TAB Prov: Kaleb Paniagua MD 06/14/19 Kaleb Paniagua MD Jun 14, 2019 13:24
[2019-06-14 13:29] LABS: EOSINOPHILS % (AUTO) 3.5 % (0.0-3.0); HEMATOCRIT 37.4 % (37.0-47.0); HEMOGLOBIN 12.6 G/DL (12.0-16.0); MEAN CORPUSCULAR VOLUME 92 FL (80-99); MONOCYTES % (AUTO) 7.8 % (1.0-10.0); NEUTROPHILS % (AUTO) 59.7 % (45.0-75.0); PLATELET COUNT 299 K/UL (150-450); RED BLOOD COUNT 4.05 M/UL (4.20-5.40); RED CELL DISTRIBUTION WIDTH 12.7 % (11.6-14.8); WHITE BLOOD COUNT 4.7 K/UL (4.8-10.8)
[2019-06-14 13:35] LABS: INR 0.9 (0.9-1.1)
--- NOTE | 2019-06-14 13:35 | NUR ---
ED Nurse Note: pt left for head CT
--- NOTE | 2019-06-14 13:50 | NUR ---
ED Nurse Note: pt returned from Head CT
--- NOTE | 2019-06-14 13:52 | NUR ---
Ysabel freeman in EDM - 06/14/19 at 1359 by DEVANTE ED Nurse Note: Daughter at bedside
[2019-06-14 13:58] LABS: ANION GAP 10 mmol/L (5-15); BLOOD UREA NITROGEN 36 mg/dL (7-18); CALCIUM 9.3 MG/DL (8.5-10.1); CARBON DIOXIDE 27 MMOL/L (21-32); CHLORIDE 106 MMOL/L (98-107); POTASSIUM 4.1 MMOL/L (3.5-5.1); SODIUM 143 MMOL/L (136-145)
--- NOTE | 2019-06-14 13:59 | NUR ---
ED Nurse Note: new case mgr angel at bedside
[2019-06-14 14:03] LABS: ALANINE AMINOTRANSFERASE 39 U/L (12-78); ALBUMIN 3.7 G/DL (3.4-5.0); ALBUMIN/GLOBULIN RATIO 0.9 (1.0-2.7); ALKALINE PHOSPHATASE 63 U/L (46-116); ASPARTATE AMINO TRANSFERASE 31 U/L (15-37); BILIRUBIN,TOTAL 0.5 MG/DL (0.2-1.0)
--- NOTE | 2019-06-14 14:35 | Diagnostic Imaging Report ---
Indication: 84-year-old female acute dizziness Technique: Contiguous 5 mm thick transaxial imaging of the head obtained in a Siemens Sensation [address] scanner. Soft tissue and bone windows generated. Automatic Exposure Control was utilized. Total Dose length Product (DLP): 1334.[address] Dose Index Volume (CTDIvol): 60 mGy Comparison: 01/21/2019 Findings: There is mild prominence of the ventricles, basal cisterns, and cerebral sulci consistent with atrophy. Minimal white matter hypoattenuation is noted throughout the brain consistent with chronic small vessel disease. There is no midline shift, edema, acute hemorrhage, mass effect, or abnormal extra-axial fluid collections. Bones are unremarkable. Impression: No acute intracranial bleed, mass effect or edema. Mild atrophy of the brain. Minimal white matter hypoattenuation probably due to chronic small vessel disease. No change The CT scanner at [facility] is accredited by the [employer] and the scans are performed using dose optimization techniques as appropriate to a performed exam including Automatic Exposure control.
[2019-06-14] MEDS ORDERED: Acetaminophen 500mg (ES) tab ORAL ONE (15:00)
[2019-06-14 15:08] VITALS: BP 123/61
[2019-06-14] MEDS ORDERED: MECLIZINE HCL12.5 MG ORAL (15:26)
[2019-06-14 15:48] VITALS: BP 131/68
--- NOTE | 2019-06-14 15:49 | NUR ---
ER DISCHARGE NOTE: Patient is cleared to be discharged per ERMD, pt is aox4, on room air, with stable vital signs. pt was given dc instructions, pt was able to verbalize understanding, pt id band and iv site removed without complications. pt is able to ambulate with steady gait. pt took all belongings. pt left with rn case mgr
== END 2019-06-14 15:47 | disposition home or self-care (01) ==
LOC: EDBD 13:09 → EMR 13:51
DX: S09.90XA Unspecified injury of head, initial encounter (principal); F03.90 Unspecified dementia, unspecified severity, without behavioral disturbance, psychotic disturbance, mood disturbance, and anxiety; W19.XXXA Unspecified fall, initial encounter; Y92.9 Unspecified place or not applicable; E78.00 Pure hypercholesterolemia, unspecified
CPT/HCPCS: 36415; 70450; 80053; 84484; 85025; 85610; 85730; 93005; Z7502; 99284

== ENCOUNTER 2020-04-09 12:56 | Emergency (ER) | payer OTHER ==
[~2020-04-09] VITALS: Ht 165.1 cm; Wt 68.0 kg
[2020-04-09 13:23] VITALS: BP 132/54
--- NOTE | 2020-04-09 13:29 | Emergency Room Report ---
History of Present Illness General Chief Complaint: Asthma Source: Caregiver Present Illness HPI 85-year-old female with history of asthma and arthritis here complaining of asthma exacerbation minor cough x2 days. Patient reports that has a nebulizer machine at home however ran out of treatments. Patient does not know her Covid status. Denies any diarrhea, congestion, loss of taste and smell. Denies any c hest pain and shortness of breath at this time. No wheezing noted. No accessory muscle use noted. Patient is not retracting. Denies tobacco smoke, drug use, alcohol intake patient is ambulating with a walker due to arthritis. Allergies: Coded Allergies: No Known Allergies (Unverified , 01/26/18) COVID-19 Screening Contact w/high risk pt: No Experienced COVID-19 symptoms?: Yes COVID-19 Testing performed QM NURSE: No Patient History Past Medical History: see triage record Past Surgical History: none Pertinent Family History: none Now: No Immunizations: UTD Reviewed Nursing Documentation: PMH: Agreed; PSxH: Agreed Nursing Documentation-PMH Hx Cardiac Problems: Yes - high cholesterol Hx Asthma: Yes Hx Cancer: No Hx Syncope: Yes Review of Systems All Other Systems: negative except mentioned in HPI Physical Exam Vital Signs Date Time Temp Pulse Resp B/P (MAP) Pulse Ox O2 Delivery O2 Flow Rate FiO2 04/09/20 13:07 98.2 62 17 132/54 (80) 93 Room Air Sp02 EP Interpretation: reviewed, normal General Appearance: no apparent distress, alert, GCS 15, non-toxic Head: normocephalic, atraumatic Eyes: bilateral eye normal inspection, bilateral eye PERRL ENT: hearing grossly normal, normal pharynx, no angioedema, normal voice Neck: full range of motion, supple/symm/no masses Respiratory: chest non-tender, lungs clear, normal breath sounds, no wheezing, speaking full sentences Cardiovascular #1: regular rate, rhythm, no edema Gastrointestinal: normal bowel sounds, non tender, soft, non-distended, no guarding, no rebound Musculoskeletal: back normal, normal range of motion, no calf tenderness, gait/station normal, non-tender Neurologic: alert, motor strength/tone normal, oriented x3, sensory intact, responsive, speech normal Psychiatric: judgement/insight normal, memory normal, mood/affect normal, no suicidal/homicidal ideation Skin: no rash Lymphatic: no adenopathy Medical Decision Making PA Attestation All my diagnosis and treatment plans were reviewed ad discussed with my supervising physician Dr. Prajapati Diagnostic Impression: Primary Impression: Asthmatic bronchitis ER Course 85-year-old female with history of asthma and arthritis here complaining of asthma exacerbation minor cough x2 days. Patient reports that has a nebulizer machine at home however ran out of treatments. Patient does not know her Covid status. Denies any diarrhea, congestion, loss of taste and smell. Denies any chest pain and shortness of breath at this time. No wheezing noted. No ac cessory muscle use noted. Patient is not retracting. Denies tobacco smoke, drug use, alcohol intake patient is ambulating with a walker due to arthritis. Ddx considered but are not limited to asthma exacerbation,: bronchitis, PNA, URI viral, bacterial brochitis Vital signs: are WNL, pt. is afebrile H&PE are most consistent with: Asthmatic bronchitis ORDERS: Chest x-ray, prednisone, azithromycin, albuterol nebulizer treatment ED INTERVENTIONS: None required at this time. DISCHARGE: At this time pt. is stable for d/c to home. Will provide printed patient care instructions, and any necessary prescriptions. Care plan and follow up instructions have been discussed with the patient prior to discharge. At this time patient oxygen is 98% on room air, afebrile, in no distress. Advised patient to use breathing treatments at home, if worsening symptoms, worsening respiratory symptoms return to the emergency room. Also advised patient to get tested for Covid. Chest X-Ray Diagnostic Results Chest X-Ray Diagnostic Results : Chest X-Ray Ordered: Yes # of Views/Limited/Complete: 1 View Indication: Other - Cough EP Interpretation: Yes CHAY Xray: Interpretation reviewed, by supervising MD, and agrees with findings. Interpretation: no consolidation, no effusion, no pneumothorax Impression: No acute disease Electronically Signed by: Adan Patterson PA-C Last Vital Signs Date Time Temp Pulse Resp B/P (MAP) Pulse Ox O2 Delivery O2 Flow Rate FiO2 04/09/20 13:23 98.2 17 132/54 93 Room Air 04/09/20 13:23 62 Disposition: HOME, SELF-CARE Condition: Stable Scripts Albuterol Sulfate (VENTOLIN HFA) 18 Gm Hfa.aer.ad 2 PUFFS INH EVERY 6 HOURS, #18 GM 0 Refills Prov: Adan Gu 04/09/20 Albuterol Sulfate* (ALBUTEROL SULFATE HHN*) 2.5 Mg/3 Ml Vial.neb 3 ML INH THREE TIMES A DAY, #30 EA 0 Refills Prov: Adan Gu 04/09/20 Prednisone* (PREDNISONE*) 20 Mg Tablet 40 MG ORAL DAILY for 5 Days, #10 TAB Prov: Adan Gu 04/09/20 Azithromycin* (ZITHROMAX*) 250 Mg Tablet 250 MG ORAL DAILY, #6 TAB 0 Refills Take two tables once daily for 1 day, then one tablet once daily for 4 days. Prov: Adan Gu 04/09/20 Patient Instructions: Asthma, Adult Additional Instructions: Take medication as directed, follow primary care provider, I recommend you get tested for Covid, if worsening symptom return to the emergency room Adan Gu Apr 09, 2020 13:29
[2020-04-09] MEDS ORDERED: ZITHROMAX250 MG ORAL (13:31)
[2020-04-09] MEDS ORDERED: VENTOLIN HFA18 GM INH (13:31)
[2020-04-09] MEDS ORDERED: ALBUTEROL2.5 MG/3 M INH (13:31)
[2020-04-09] MEDS ORDERED: PREDNISONE20 MG ORAL (13:31)
[2020-04-09 13:35] VITALS: BP 132/54
--- NOTE | 2020-04-09 15:17 | Diagnostic Imaging Report ---
Indication: Shortness of breath Technique: One view of the chest Comparison: 01/21/2019 Findings: The heart is enlarged. The lungs and pleural spaces are clear. There is no significant change Impression: Cardiomegaly. No acute process
== END 2020-04-09 13:35 | disposition home or self-care (01) ==
LOC: EMR 13:30
DX: J45.901 Unspecified asthma with (acute) exacerbation (principal); E78.00 Pure hypercholesterolemia, unspecified
CPT/HCPCS: 71045; Z7502; 99283